=== PATIENT | male | born 1960 | race Caucasian/White ===

== ENCOUNTER 2021-03-01 13:11 | Inpatient (IN) | payer OTHER ==
[2021-03-01 13:43] VITALS: BMI 24.2
[2021-03-01] MEDS ORDERED: MAG HYDROX/AL HYDROX/SIMETH 30 ML UNIT-DOSE CUP PO PRN (14:31)
[2021-03-01] MEDS ORDERED: METHADONE HCL 10 MG TABLET (FOR DETOX USE ONLY) PO ONE (14:31)
[2021-03-01] MEDS ORDERED: MENTHOL/PHENOL 1 EACH UD MM PRN (14:31)
[2021-03-01] MEDS ORDERED: IBUPROFEN 400 MG TABLET (FP) PO PRN (14:31)
[2021-03-01] MEDS ORDERED: LORazepam 1 MG TABLET PO PRN (14:31)
[2021-03-01] MEDS ORDERED: NICOTINE POLACRILEX 2 MG GUM BUC PRN (14:31)
[2021-03-01] MEDS ORDERED: MAGNESIUM HYDROX 2400MG/30ML ORAL SUSPENSION 30 ML CUP PO PRN (14:31)
[2021-03-01] MEDS ORDERED: ACETAMINOPHEN 325 MG TABLET (FP) PO PRN ×2 (14:31)
[2021-03-01] MEDS ORDERED: MAGNESIUM CITRATE 300 ML BOTTLE PO PRN (14:31)
[2021-03-01] MEDS ORDERED: METHOCARBAMOL 500 MG TABLET PO PRN (14:31)
[2021-03-01] MEDS ORDERED: cloNIDine HCL 0.1 MG TABLET PO PRN (14:31)
[2021-03-01] MEDS ORDERED: BISMUTH SUBSALICYLATE 262 MG/15 ML BTL PO PRN (14:31)
[2021-03-01] MEDS ORDERED: ONDANSETRON *ODT* 4 MG TABLET SL PRN (14:31)
[2021-03-01] MEDS: hydrOXYzine PAMOATE 25 MG CAPSULE (FP) PO SCH ×2 (17:22→22:17)
[2021-03-01] MEDS: PRENATAL VITAMINS W/ FOLIC ACID TABLET (FP) PO SCH (17:22)
[2021-03-01] MEDS: LORazepam 2 MG TABLET PO SCH ×2 (17:22→22:17)
[2021-03-01] MEDS: MELATONIN 5 MG TABLETS PO SCH (22:17)
[2021-03-01] MEDS: THIAMINE HCL 100 MG TABLET (FP) PO SCH (22:17)
[2021-03-02] MEDS: LORazepam 2 MG TABLET PO SCH ×4 (05:23→22:29)
[2021-03-02] MEDS: hydrOXYzine PAMOATE 25 MG CAPSULE (FP) PO SCH ×5 (05:23→22:30)
[2021-03-02] MEDS ORDERED: METHADONE HCL 10 MG TABLET PO ONE (09:50)
[2021-03-02] MEDS ORDERED: METHADONE HCL 40 MG DISPERSABLE TABLET PO SCH (10:00)
[2021-03-02] MEDS ORDERED: METHADONE (DETOX) 20 MG, METHADONE (DETOX) 5 MG PO ONE (10:00)
[2021-03-02] MEDS ORDERED: METHADONE 80 MG, METHADONE 10 MG PO ONE (10:02)
[2021-03-02] MEDS ORDERED: METHADONE HCL 40 MG DISPERSABLE TABLET ONE (10:25)
[2021-03-02] MEDS ORDERED: METHADONE HCL 10 MG TABLET ONE (10:25)
[2021-03-02] MEDS: PRENATAL VITAMINS W/ FOLIC ACID TABLET (FP) PO SCH (10:26)
[2021-03-02 11:26] LABS: HEMATOCRIT 40.5 % (35.4-49); HEMOGLOBIN 13.6 GM/dL (11.7-16.9); MCH 35.5 pg (25.7-33.7); MCHC 33.5 g/dl (32.0-35.9); MEAN CELL VOLUME 106.2 fl (80-96); MEAN PLT VOLUME 10.2 fl (7.5-11.1); PLATELET COUNT 243 10^3/uL (134-434); RBC 3.82 M/mm3 (4.00-5.60); RDW 14.2 % (11.9-15.9); WHITE BLOOD COUNT 3.3 K/mm3 (4.0-10.0)
[2021-03-02 11:56] LABS: ALBUMIN 3.7 g/dl (3.4-5.0); BLOOD UREA NITROGEN 7.8 mg/dL (7-18); CALCIUM 8.9 mg/dL (8.5-10.1)
[2021-03-02 11:58] LABS: CREATININE 0.7 mg/dL (0.55-1.3)
[2021-03-02 12:00] LABS: BILIRUBIN,TOTAL 0.3 mg/dL (0.2-1)
[2021-03-02] MEDS: TIOTROPIUM BROMIDE 2.5 MCG (SPIRIVA) RESPIMAT INHALER IH SCH (17:25)
[2021-03-02] MEDS: FLUTICASONE PROP 0.05% 16 GM NASAL SPRAY NS SCH ×2 (17:25→22:31)
[2021-03-02] MEDS: BUDESONIDE/FORMETEROL FUMARATE 160/4.5 mcg INHALER IH SCH ×2 (17:25→22:31)
[2021-03-02] MEDS: DOCUSATE SODIUM 100 MG CAPSULE (FP) PO SCH ×2 (17:26→22:30)
[2021-03-02] MEDS: amLODIPine BESYLATE 10 MG TABLET (FP) PO SCH (17:26)
[2021-03-02] MEDS: MELATONIN 5 MG TABLETS PO SCH (22:30)
[2021-03-02] MEDS: THIAMINE HCL 100 MG TABLET (FP) PO SCH (22:30)
[2021-03-02] MEDS: SENNOSIDES 8.6MG TABLET (FP) PO SCH (22:30)
[2021-03-03] MEDS ORDERED: METHADONE HCL 10 MG TABLET ONE (04:19)
[2021-03-03] MEDS ORDERED: METHADONE HCL 40 MG DISPERSABLE TABLET ONE (04:20)
[2021-03-03] MEDS: METHADONE 80 MG, METHADONE 10 MG PO SCH (05:14)
[2021-03-03] MEDS: hydrOXYzine PAMOATE 25 MG CAPSULE (FP) PO SCH ×5 (05:14→22:40)
[2021-03-03] MEDS: LORazepam 1 MG TABLET PO SCH ×4 (05:14→22:40)
[2021-03-03] MEDS: DOCUSATE SODIUM 100 MG CAPSULE (FP) PO SCH ×3 (05:14→22:40)
[2021-03-03] MEDS ORDERED: METHADONE HCL 40 MG DISPERSABLE TABLET PO SCH (06:00)
[2021-03-03] MEDS ORDERED: METHADONE HCL 10 MG TABLET (FOR DETOX USE ONLY) PO ONE (10:00)
[2021-03-03] MEDS: amLODIPine BESYLATE 10 MG TABLET (FP) PO SCH (10:59)
[2021-03-03] MEDS: FLUTICASONE PROP 0.05% 16 GM NASAL SPRAY NS SCH ×2 (10:59→22:42)
[2021-03-03] MEDS: BUDESONIDE/FORMETEROL FUMARATE 160/4.5 mcg INHALER IH SCH ×2 (10:59→22:42)
[2021-03-03] MEDS: PRENATAL VITAMINS W/ FOLIC ACID TABLET (FP) PO SCH (10:59)
[2021-03-03] MEDS: FINASTERIDE 5 MG TABLET (FP) PO SCH (11:00)
[2021-03-03] MEDS: TIOTROPIUM BROMIDE 2.5 MCG (SPIRIVA) RESPIMAT INHALER IH SCH (11:00)
[2021-03-03] MEDS: SENNOSIDES 8.6MG TABLET (FP) PO SCH (22:40)
[2021-03-03] MEDS: traZODone HCL 50 MG TABLET (FP) PO SCH (22:40)
[2021-03-03] MEDS: MELATONIN 5 MG TABLETS PO SCH (22:41)
[2021-03-03] MEDS: THIAMINE HCL 100 MG TABLET (FP) PO SCH (22:41)
[2021-03-04] MEDS ORDERED: LORazepam 0.5 MG TABLET PO PRN
[2021-03-04] MEDS ORDERED: METHADONE HCL 10 MG TABLET ONE (04:43)
[2021-03-04] MEDS ORDERED: METHADONE HCL 40 MG DISPERSABLE TABLET ONE (04:43)
[2021-03-04] MEDS: DOCUSATE SODIUM 100 MG CAPSULE (FP) PO SCH ×3 (05:50→22:31)
[2021-03-04] MEDS: METHADONE 80 MG, METHADONE 10 MG PO SCH (05:51)
[2021-03-04] MEDS: LORazepam 0.5 MG TABLET PO SCH ×4 (05:53→22:31)
[2021-03-04] MEDS: hydrOXYzine PAMOATE 25 MG CAPSULE (FP) PO SCH (05:54)
[2021-03-04] MEDS ORDERED: hydrOXYzine PAMOATE 25 MG CAPSULE (FP) PO PRN (09:58)
[2021-03-04] MEDS ORDERED: METHADONE (DETOX) 10 MG, METHADONE (DETOX) 5 MG PO ONE (10:00)
[2021-03-04] MEDS: FLUTICASONE PROP 0.05% 16 GM NASAL SPRAY NS SCH ×2 (10:15→22:33)
[2021-03-04] MEDS: BUDESONIDE/FORMETEROL FUMARATE 160/4.5 mcg INHALER IH SCH ×2 (10:15→22:33)
[2021-03-04] MEDS: amLODIPine BESYLATE 10 MG TABLET (FP) PO SCH (10:16)
[2021-03-04] MEDS: TIOTROPIUM BROMIDE 2.5 MCG (SPIRIVA) RESPIMAT INHALER IH SCH (10:16)
[2021-03-04] MEDS: PRENATAL VITAMINS W/ FOLIC ACID TABLET (FP) PO SCH (10:16)
[2021-03-04] MEDS: FINASTERIDE 5 MG TABLET (FP) PO SCH (10:16)
[2021-03-04] MEDS: traZODone HCL 50 MG TABLET (FP) PO SCH (22:31)
[2021-03-04] MEDS: SENNOSIDES 8.6MG TABLET (FP) PO SCH (22:31)
[2021-03-04] MEDS: THIAMINE HCL 100 MG TABLET (FP) PO SCH (22:31)
[2021-03-04] MEDS: MELATONIN 5 MG TABLETS PO SCH (22:33)
[2021-03-05] MEDS ORDERED: METHADONE HCL 10 MG TABLET ONE (04:05)
[2021-03-05] MEDS ORDERED: METHADONE HCL 40 MG DISPERSABLE TABLET ONE (04:05)
[2021-03-05] MEDS ORDERED: LORazepam 0.5 MG TABLET PO ONE (05:00)
[2021-03-05] MEDS: DOCUSATE SODIUM 100 MG CAPSULE (FP) PO SCH (05:46)
[2021-03-05] MEDS: METHADONE 80 MG, METHADONE 10 MG PO SCH (05:46)
[2021-03-05] MEDS ORDERED: METHADONE HCL 10 MG TABLET (FOR DETOX USE ONLY) PO ONE (10:00)
[2021-03-05 10:21] VITALS: BP 105/69; PULSE 71; TEMP 97.3
[2021-03-06] MEDS ORDERED: METHADONE HCL 5 MG TABLET (FOR DETOX USE ONLY) PO ONE (06:00)
== END 2021-03-05 09:50 | disposition home or self-care (01) | DRG 773 ==
LOC: YASAS 13:11 → Y3N 14:59
PROVIDERS: ADMIT Allergy & Immunology; ATTEND Allergy & Immunology
PROC: HZ2ZZZZ Detoxification Services for Substance Abuse Treatment (ICD-10-PCS; principal; 2021-03-01)
DX: F11.23 Opioid dependence with withdrawal (principal); F10.230 Alcohol dependence with withdrawal, uncomplicated; F17.210 Nicotine dependence, cigarettes, uncomplicated; I10 Essential (primary) hypertension; J44.9 Chronic obstructive pulmonary disease, unspecified; Z96.652 Presence of left artificial knee joint
CPT/HCPCS: 36415; 80053; 85027; 86780; 93005; 93010; C9803; U0003; U0005

== ENCOUNTER 2023-04-19 18:24 | Inpatient (IN) | payer OTHER ==
[2023-04-19 20:22] VITALS: BMI 27.4
[2023-04-19] MEDS ORDERED: chlordiazePOXIDE HCL 25 MG CAPSULE PO ONE (21:18)
[2023-04-19] MEDS ORDERED: chlordiazePOXIDE HCL 25 MG CAPSULE PO PRN (21:18)
[2023-04-19] MEDS ORDERED: chlordiazePOXIDE HCL 25 MG CAPSULE ONE (21:34)
[2023-04-19] MEDS ORDERED: MAGNESIUM HYDROX 2400MG/30ML ORAL SUSPENSION 30 ML CUP PO PRN (21:36)
[2023-04-19] MEDS ORDERED: IBUPROFEN 600 MG TABLET (FP) PO PRN (21:36)
[2023-04-19] MEDS ORDERED: IBUPROFEN 400 MG TABLET (FP) PO PRN (21:36)
[2023-04-19] MEDS ORDERED: ONDANSETRON *ODT* 4 MG TABLET SL PRN (21:36)
[2023-04-19] MEDS ORDERED: NALOXONE HCL (KLOXXADO) 8 MG SPRAY NS PRN (21:36)
[2023-04-19] MEDS ORDERED: NALOXONE HCL 0.4 MG/ML VIAL IM PRN (21:36)
[2023-04-19] MEDS ORDERED: LOPERAMIDE HCL 2 MG CAPSULE PO PRN (21:36)
[2023-04-19] MEDS ORDERED: MAG HYDROX/AL HYDROX/SIMETH 30 ML UNIT-DOSE CUP PO PRN (21:36)
[2023-04-19] MEDS ORDERED: guaiFENesin 600 MG TABLET.ER (FP) PO PRN (21:36)
[2023-04-19] MEDS ORDERED: POLYETHYLENE GLYCOL (HEALTHYLAX) 3350 17 GM PACKET PO PRN (21:36)
[2023-04-19] MEDS ORDERED: BISMUTH SUBSALICYLATE 524 MG/30 ML PO PRN (21:36)
[2023-04-19] MEDS ORDERED: BENZOCAINE/MENTHOL (CHLORASEPTIC ) LOZENGE MM PRN (21:36)
[2023-04-19] MEDS ORDERED: ACETAMINOPHEN 325 MG TABLET (FP) PO PRN (21:36)
[2023-04-19] MEDS ORDERED: P-EPHED 60MG/TRIPROLIDI 2.5MG TABLET PO PRN (21:36)
[2023-04-19] MEDS ORDERED: BENZONATATE 200 MG CAPSULE PO PRN (21:36)
[2023-04-19] MEDS ORDERED: amLODIPine BESYLATE 5 MG TABLET (FP) ONE (22:41)
[2023-04-19] MEDS: amLODIPine BESYLATE 10 MG TABLET (FP) PO SCH (22:43)
[2023-04-19] MEDS: THIAMINE HCL 100 MG TABLET (FP) PO SCH (22:44)
[2023-04-19] MEDS ORDERED: chlordiazePOXIDE HCL 25 MG CAPSULE PO SCH (23:00)
[2023-04-19] MEDS: MELATONIN 5 MG TABLETS PO SCH (23:02)
[2023-04-19] MEDS: BUDESONIDE/FORMETEROL FUMARATE 160/4.5 mcg INHALER IH SCH (23:02)
[2023-04-19] MEDS: DOCUSATE SODIUM 100 MG CAPSULE (FP) PO SCH (23:02)
[2023-04-19] MEDS ORDERED: ALBUTEROL SO4 2.5/IPRATROPIUM 0.5 INH SOL 3 ML VIAL.NEB. NEB ONE (23:30)
[2023-04-20] MEDS: chlordiazePOXIDE HCL 25 MG CAPSULE PO SCH ×4 (05:37→22:30)
[2023-04-20] MEDS: DOCUSATE SODIUM 100 MG CAPSULE (FP) PO SCH ×3 (05:38→22:30)
[2023-04-20] MEDS ORDERED: methaDONE HCL 10 MG TABLET PO SCH (09:30)
[2023-04-20] MEDS ORDERED: methaDONE 80 MG, methaDONE 20 MG PO ONE (10:00)
[2023-04-20] MEDS: FOLIC ACID 1 MG TABLET (FP) PO SCH (10:10)
[2023-04-20] MEDS: PRENATAL VITAMINS W/ FOLIC ACID TABLET (FP) PO SCH (10:10)
[2023-04-20] MEDS: amLODIPine BESYLATE 10 MG TABLET (FP) PO SCH (10:10)
[2023-04-20] MEDS: BUDESONIDE/FORMETEROL FUMARATE 160/4.5 mcg INHALER IH SCH ×2 (10:11→22:30)
[2023-04-20] MEDS: TIOTROPIUM BROMIDE 2.5 MCG (SPIRIVA) RESPIMAT INHALER IH SCH (10:12)
[2023-04-20 11:04] LABS: POTASSIUM 3.2 mmol/L (3.5-5.1)
[2023-04-20 11:05] LABS: HEMATOCRIT 31.1 % (35.4-49); HEMOGLOBIN 10.4 GM/dL (11.7-16.9); MCH 35.9 pg (25.7-33.7); MCHC 33.5 g/dl (32.0-35.9); MEAN CELL VOLUME 107.2 fl (80-96); MEAN PLT VOLUME 8.9 fl (7.5-11.1); PLATELET COUNT 163 10^3/uL (134-434); RDW 14.4 % (11.9-15.9); WHITE BLOOD COUNT 2.8 K/mm3 (4.0-10.0)
[2023-04-20 11:06] LABS: CALCIUM 8.7 mg/dL (8.5-10.1)
[2023-04-20 11:07] LABS: ALBUMIN 3.4 g/dl (3.4-5.0); BLOOD UREA NITROGEN 6.3 mg/dL (7-18)
[2023-04-20 11:10] LABS: CREATININE 0.5 mg/dL (0.55-1.3)
[2023-04-20 12:01] LABS: BILIRUBIN,TOTAL 0.5 mg/dL (0.2-1)
[2023-04-20] MEDS: FAMOTIDINE 20 MG TABLET PO SCH (15:55)
[2023-04-20] MEDS: POTASSIUM CHLORIDE ORAL LIQUID 20 MEQ/15 ML PO SCH (17:17)
[2023-04-20] MEDS: THIAMINE HCL 100 MG TABLET (FP) PO SCH (22:30)
[2023-04-20] MEDS: MELATONIN 5 MG TABLETS PO SCH (22:30)
[2023-04-21] MEDS: methaDONE 80 MG, methaDONE 20 MG PO SCH (05:57)
[2023-04-21] MEDS: DOCUSATE SODIUM 100 MG CAPSULE (FP) PO SCH ×3 (05:57→22:13)
[2023-04-21] MEDS: chlordiazePOXIDE HCL 25 MG CAPSULE PO SCH ×4 (05:58→22:14)
[2023-04-21] MEDS: POTASSIUM CHLORIDE ORAL LIQUID 20 MEQ/15 ML PO SCH (06:05)
[2023-04-21] MEDS: AMOX TR/POT CLAV 875MG/125MG TABLETS (FP) PO SCH ×2 (07:17→17:21)
[2023-04-21] MEDS: PRENATAL VITAMINS W/ FOLIC ACID TABLET (FP) PO SCH (10:22)
[2023-04-21] MEDS: FOLIC ACID 1 MG TABLET (FP) PO SCH (10:22)
[2023-04-21] MEDS: TIOTROPIUM BROMIDE 2.5 MCG (SPIRIVA) RESPIMAT INHALER IH SCH (10:22)
[2023-04-21] MEDS: BUDESONIDE/FORMETEROL FUMARATE 160/4.5 mcg INHALER IH SCH ×2 (10:22→22:14)
[2023-04-21] MEDS: DOXYCYCLINE HYCLATE 100 MG CAPSULE PO SCH ×2 (10:23→17:32)
[2023-04-21] MEDS: amLODIPine BESYLATE 10 MG TABLET (FP) PO SCH (10:23)
[2023-04-21] MEDS: FAMOTIDINE 20 MG TABLET PO SCH (10:23)
[2023-04-21] MEDS ORDERED: ALBUTEROL SO4 HFA INHALER IH PRN (14:24)
[2023-04-21] MEDS: THIAMINE HCL 100 MG TABLET (FP) PO SCH (22:13)
[2023-04-21] MEDS: MELATONIN 5 MG TABLETS PO SCH (22:13)
[2023-04-22] MEDS ORDERED: chlordiazePOXIDE HCL 10 MG CAPSULE PO PRN
[2023-04-22] MEDS: methaDONE 80 MG, methaDONE 20 MG PO SCH (05:41)
[2023-04-22] MEDS: chlordiazePOXIDE HCL 10 MG CAPSULE PO SCH ×4 (05:42→22:12)
[2023-04-22] MEDS: DOCUSATE SODIUM 100 MG CAPSULE (FP) PO SCH ×3 (05:42→22:11)
[2023-04-22] MEDS: AMOX TR/POT CLAV 875MG/125MG TABLETS (FP) PO SCH ×2 (07:22→17:13)
[2023-04-22] MEDS ORDERED: TRIMETHOBENZAMIDE HCL 200MG/2ML INJ IM ONE (10:14)
[2023-04-22] MEDS: BUDESONIDE/FORMETEROL FUMARATE 160/4.5 mcg INHALER IH SCH ×2 (10:27→22:11)
[2023-04-22] MEDS: TIOTROPIUM BROMIDE 2.5 MCG (SPIRIVA) RESPIMAT INHALER IH SCH (10:27)
[2023-04-22] MEDS: PRENATAL VITAMINS W/ FOLIC ACID TABLET (FP) PO SCH (10:27)
[2023-04-22] MEDS: DOXYCYCLINE HYCLATE 100 MG CAPSULE PO SCH ×2 (10:28→17:12)
[2023-04-22] MEDS: FAMOTIDINE 20 MG TABLET PO SCH (10:29)
[2023-04-22] MEDS: amLODIPine BESYLATE 10 MG TABLET (FP) PO SCH (10:30)
[2023-04-22] MEDS: FOLIC ACID 1 MG TABLET (FP) PO SCH (10:30)
[2023-04-22] MEDS ORDERED: ONDANSETRON 4 MG/2 ML VIAL IM ONE (11:00)
[2023-04-22] MEDS: MELATONIN 5 MG TABLETS PO SCH (22:11)
[2023-04-22] MEDS: THIAMINE HCL 100 MG TABLET (FP) PO SCH (22:11)
[2023-04-23] MEDS: chlordiazePOXIDE HCL 10 MG CAPSULE PO SCH ×2 (05:42→17:52)
[2023-04-23] MEDS: DOCUSATE SODIUM 100 MG CAPSULE (FP) PO SCH ×3 (05:42→22:09)
[2023-04-23] MEDS: methaDONE 80 MG, methaDONE 20 MG PO SCH (05:43)
[2023-04-23] MEDS: AMOX TR/POT CLAV 875MG/125MG TABLETS (FP) PO SCH ×2 (07:14→17:53)
[2023-04-23] MEDS ORDERED: ONDANSETRON *ODT* 4 MG TABLET SL PRN (09:54)
[2023-04-23] MEDS: PRENATAL VITAMINS W/ FOLIC ACID TABLET (FP) PO SCH (10:21)
[2023-04-23] MEDS: BUDESONIDE/FORMETEROL FUMARATE 160/4.5 mcg INHALER IH SCH ×2 (10:22→22:10)
[2023-04-23] MEDS: TIOTROPIUM BROMIDE 2.5 MCG (SPIRIVA) RESPIMAT INHALER IH SCH (10:22)
[2023-04-23] MEDS: FOLIC ACID 1 MG TABLET (FP) PO SCH (11:57)
[2023-04-23] MEDS: amLODIPine BESYLATE 10 MG TABLET (FP) PO SCH (11:58)
[2023-04-23] MEDS: FAMOTIDINE 20 MG TABLET PO SCH (11:58)
[2023-04-23] MEDS: DOXYCYCLINE HYCLATE 100 MG CAPSULE PO SCH ×2 (12:14→17:52)
[2023-04-23] MEDS ORDERED: POTASSIUM CHLORIDE ORAL LIQUID 20 MEQ/15 ML PO ONE (15:30)
[2023-04-23] MEDS: THIAMINE HCL 100 MG TABLET (FP) PO SCH (22:09)
[2023-04-23] MEDS: POTASSIUM CHLORIDE ORAL LIQUID 20 MEQ/15 ML PO SCH (22:09)
[2023-04-23] MEDS: MELATONIN 5 MG TABLETS PO SCH (22:09)
[2023-04-24] MEDS ORDERED: chlordiazePOXIDE HCL 10 MG CAPSULE PO ONE (05:00)
[2023-04-24] MEDS: DOCUSATE SODIUM 100 MG CAPSULE (FP) PO SCH (05:29)
[2023-04-24] MEDS: methaDONE 80 MG, methaDONE 20 MG PO SCH (05:29)
[2023-04-24] MEDS: AMOX TR/POT CLAV 875MG/125MG TABLETS (FP) PO SCH (07:22)
[2023-04-24] MEDS: FOLIC ACID 1 MG TABLET (FP) PO SCH (09:24)
[2023-04-24] MEDS: amLODIPine BESYLATE 10 MG TABLET (FP) PO SCH (09:24)
[2023-04-24] MEDS: FAMOTIDINE 20 MG TABLET PO SCH (09:24)
[2023-04-24] MEDS: TIOTROPIUM BROMIDE 2.5 MCG (SPIRIVA) RESPIMAT INHALER IH SCH (09:24)
[2023-04-24] MEDS: BUDESONIDE/FORMETEROL FUMARATE 160/4.5 mcg INHALER IH SCH (09:24)
[2023-04-24] MEDS: DOXYCYCLINE HYCLATE 100 MG CAPSULE PO SCH (09:24)
[2023-04-24] MEDS: POTASSIUM CHLORIDE ORAL LIQUID 20 MEQ/15 ML PO SCH (09:25)
[2023-04-24] MEDS: PRENATAL VITAMINS W/ FOLIC ACID TABLET (FP) PO SCH (09:27)
[2023-04-24 10:59] VITALS: BP 105/77; PULSE 82; RESP 17; TEMP 98.3
== END 2023-04-24 12:36 | disposition other institution (70) | DRG 773 ==
LOC: YASAS 18:24 → Y3N 22:03
PROVIDERS: ADMIT Allergy & Immunology; ATTEND Surgery
PROC: HZ2ZZZZ Detoxification Services for Substance Abuse Treatment (ICD-10-PCS; principal; 2023-04-19)
DX: F10.230 Alcohol dependence with withdrawal, uncomplicated (principal); F11.20 Opioid dependence, uncomplicated; F17.210 Nicotine dependence, cigarettes, uncomplicated; E87.6 Hypokalemia; J18.9 Pneumonia, unspecified organism; I10 Essential (primary) hypertension; J45.909 Unspecified asthma, uncomplicated
CPT/HCPCS: 36415; 71045-TC-FY; 80053; 84132; 85027; 86780; 87635; 94640; Q0162

== ENCOUNTER 2023-04-20 18:29 | Emergency (ER) | payer OTHER ==
[2023-04-20 18:59] VITALS: RESP 18; TEMP 98.1; BMI 27.4
[2023-04-20] MEDS ORDERED: AMOX TR/POT CLAV 875MG/125MG TABLETS (FP) PO ONE (20:05)
[2023-04-20] MEDS ORDERED: DOXYCYCLINE HYCLATE 100 MG CAPSULE PO ONE ×2 (20:06→20:16)
[2023-04-20 20:07] VITALS: BP 144/88; PULSE 58
[2023-04-20] MEDS ORDERED: AMOX TR/POT CLAV 875MG/125MG TABLETS (FP) ONE (20:16)
[2023-04-20] MEDS ORDERED: LIDOCAINE 5% TOPICAL PATCH TP ONE (20:28)
[2023-04-20] MEDS ORDERED: chlordiazePOXIDE HCL 10 MG CAPSULE PO ONE (20:37)
[2023-04-20] MEDS ORDERED: chlordiazePOXIDE HCL 25 MG CAPSULE PO ONE (20:46)
[2023-04-20] MEDS ORDERED: chlordiazePOXIDE 5 MG CAPSULE ONE (20:46)
[2023-04-20] MEDS ORDERED: chlordiazePOXIDE HCL 25 MG CAPSULE ONE (20:52)
== END 2023-04-20 21:25 | disposition home or self-care (01) ==
LOC: JER 18:29
DX: R06.02 Shortness of breath (principal); R05.9 Cough, unspecified; R50.9 Fever, unspecified; R07.89 Other chest pain; J18.9 Pneumonia, unspecified organism; F10.10 Alcohol abuse, uncomplicated; F11.20 Opioid dependence, uncomplicated; R10.31 Right lower quadrant pain; R10.32 Left lower quadrant pain; Z02.79 Encounter for issue of other medical certificate
CPT/HCPCS: 93005; 93010; 99285-25

== ENCOUNTER 2023-04-24 12:52 | Inpatient (IN) | payer OTHER ==
[2023-04-24] MEDS ORDERED: POLYETHYLENE GLYCOL (HEALTHYLAX) 3350 17 GM PACKET PO PRN (13:41)
[2023-04-24] MEDS ORDERED: BENZOCAINE/MENTHOL (CHLORASEPTIC ) LOZENGE MM PRN (13:41)
[2023-04-24] MEDS ORDERED: LOPERAMIDE HCL 2 MG CAPSULE PO PRN (13:41)
[2023-04-24] MEDS ORDERED: NICOTINE POLACRILEX 4 MG GUM BUC PRN (13:41)
[2023-04-24] MEDS ORDERED: NALOXONE HCL 0.4 MG/ML VIAL IVPUSH PRN (13:41)
[2023-04-24] MEDS ORDERED: IBUPROFEN 600 MG TABLET (FP) PO PRN (13:41)
[2023-04-24] MEDS ORDERED: MAG HYDROX/AL HYDROX/SIMETH 30 ML UNIT-DOSE CUP PO PRN (13:41)
[2023-04-24] MEDS ORDERED: ACETAMINOPHEN 325 MG TABLET (FP) PO PRN (13:41)
[2023-04-24] MEDS ORDERED: guaiFENesin 600 MG TABLET.ER (FP) PO PRN (13:41)
[2023-04-24] MEDS ORDERED: NALOXONE HCL (KLOXXADO) 8 MG SPRAY NS PRN (13:41)
[2023-04-24] MEDS ORDERED: METHOCARBAMOL 500 MG TABLET PO PRN (13:41)
[2023-04-24] MEDS ORDERED: AMMONIUM LACTATE 12% LOTION 225 GM BOTTLE TP PRN (13:41)
[2023-04-24] MEDS ORDERED: MAGNESIUM HYDROX 2400MG/30ML ORAL SUSPENSION 30 ML CUP PO PRN (13:41)
[2023-04-24] MEDS ORDERED: IBUPROFEN 400 MG TABLET (FP) PO PRN (13:41)
[2023-04-24] MEDS ORDERED: BENZONATATE 200 MG CAPSULE PO PRN (13:41)
[2023-04-24] MEDS ORDERED: NICOTINE 14 MG/24 HOURS TOPICAL PATCH TD PRN (13:41)
[2023-04-24] MEDS: ALBUTEROL SO4 HFA INHALER IH SCH ×3 (14:32→21:23)
[2023-04-24] MEDS: DOXYCYCLINE HYCLATE 100 MG TABLET PO SCH (17:32)
[2023-04-24] MEDS: BUDESONIDE/FORMETEROL FUMARATE 160/4.5 mcg INHALER IH SCH (21:23)
[2023-04-24] MEDS: hydrOXYzine PAMOATE 25 MG CAPSULE (FP) PO PRN (21:24)
[2023-04-24] MEDS: AMOX TR/POT CLAV 875MG/125MG TABLETS (FP) PO SCH (21:24)
[2023-04-24] MEDS: MELATONIN 5 MG TABLETS PO SCH (21:24)
[2023-04-24] MEDS: THIAMINE HCL 100 MG TABLET (FP) PO SCH (21:24)
[2023-04-25] MEDS: ALBUTEROL SO4 HFA INHALER IH SCH ×2 (02:43→06:19)
[2023-04-25] MEDS: methaDONE 80 MG, methaDONE 20 MG PO SCH (06:19)
[2023-04-25] MEDS: DOXYCYCLINE HYCLATE 100 MG TABLET PO SCH ×2 (06:19→17:27)
[2023-04-25] MEDS: FAMOTIDINE 20 MG TABLET PO SCH (09:00)
[2023-04-25] MEDS ORDERED: ALBUTEROL SO4 HFA INHALER IH PRN (09:21)
[2023-04-25] MEDS: AMOX TR/POT CLAV 875MG/125MG TABLETS (FP) PO SCH ×2 (09:35→21:23)
[2023-04-25] MEDS: amLODIPine BESYLATE 10 MG TABLET (FP) PO SCH (09:35)
[2023-04-25] MEDS: PRENATAL VITAMINS W/ FOLIC ACID TABLET (FP) PO SCH (09:35)
[2023-04-25] MEDS: BUDESONIDE/FORMETEROL FUMARATE 160/4.5 mcg INHALER IH SCH ×2 (09:36→21:23)
[2023-04-25] MEDS: TIOTROPIUM BROMIDE 2.5 MCG (SPIRIVA) RESPIMAT INHALER IH SCH (09:38)
[2023-04-25] MEDS ORDERED: methaDONE HCL 40 MG DISPERSABLE TABLET PO SCH (10:00)
[2023-04-25] MEDS: THIAMINE HCL 100 MG TABLET (FP) PO SCH (21:23)
[2023-04-25] MEDS: MELATONIN 5 MG TABLETS PO SCH (21:23)
[2023-04-26] MEDS: methaDONE 80 MG, methaDONE 20 MG PO SCH (07:07)
[2023-04-26] MEDS: amLODIPine BESYLATE 10 MG TABLET (FP) PO SCH (09:53)
[2023-04-26] MEDS: BUDESONIDE/FORMETEROL FUMARATE 160/4.5 mcg INHALER IH SCH ×2 (09:53→21:48)
[2023-04-26] MEDS: FAMOTIDINE 20 MG TABLET PO SCH (09:53)
[2023-04-26] MEDS: PRENATAL VITAMINS W/ FOLIC ACID TABLET (FP) PO SCH (09:53)
[2023-04-26] MEDS: TIOTROPIUM BROMIDE 2.5 MCG (SPIRIVA) RESPIMAT INHALER IH SCH (09:54)
[2023-04-26] MEDS: MELATONIN 5 MG TABLETS PO SCH (21:48)
[2023-04-26] MEDS: THIAMINE HCL 100 MG TABLET (FP) PO SCH (21:48)
[2023-04-26] MEDS: hydrOXYzine PAMOATE 25 MG CAPSULE (FP) PO PRN (21:50)
[2023-04-27] MEDS: methaDONE 80 MG, methaDONE 20 MG PO SCH (06:15)
[2023-04-27] MEDS: FAMOTIDINE 20 MG TABLET PO SCH (09:28)
[2023-04-27] MEDS: BUDESONIDE/FORMETEROL FUMARATE 160/4.5 mcg INHALER IH SCH ×2 (09:28→21:34)
[2023-04-27] MEDS: TIOTROPIUM BROMIDE 2.5 MCG (SPIRIVA) RESPIMAT INHALER IH SCH (09:29)
[2023-04-27] MEDS: PRENATAL VITAMINS W/ FOLIC ACID TABLET (FP) PO SCH (09:29)
[2023-04-27] MEDS: amLODIPine BESYLATE 10 MG TABLET (FP) PO SCH (09:29)
[2023-04-27] MEDS: MELATONIN 5 MG TABLETS PO SCH (21:33)
[2023-04-27] MEDS: THIAMINE HCL 100 MG TABLET (FP) PO SCH (21:33)
[2023-04-28] MEDS: methaDONE 80 MG, methaDONE 20 MG PO SCH (06:05)
[2023-04-28] MEDS: COLLOIDAL OATMEAL 1 BAR EACH TP PRN (07:41)
[2023-04-28] MEDS: FAMOTIDINE 20 MG TABLET PO SCH (09:36)
[2023-04-28] MEDS: amLODIPine BESYLATE 10 MG TABLET (FP) PO SCH (09:36)
[2023-04-28] MEDS: BUDESONIDE/FORMETEROL FUMARATE 160/4.5 mcg INHALER IH SCH ×2 (09:36→21:15)
[2023-04-28] MEDS: PRENATAL VITAMINS W/ FOLIC ACID TABLET (FP) PO SCH (09:36)
[2023-04-28] MEDS: TIOTROPIUM BROMIDE 2.5 MCG (SPIRIVA) RESPIMAT INHALER IH SCH (09:36)
[2023-04-28] MEDS: THIAMINE HCL 100 MG TABLET (FP) PO SCH (21:15)
[2023-04-28] MEDS: MELATONIN 5 MG TABLETS PO SCH (21:15)
[2023-04-29] MEDS: methaDONE 80 MG, methaDONE 20 MG PO SCH (06:21)
[2023-04-29] MEDS: FAMOTIDINE 20 MG TABLET PO SCH (09:34)
[2023-04-29] MEDS: amLODIPine BESYLATE 10 MG TABLET (FP) PO SCH (09:34)
[2023-04-29] MEDS: PRENATAL VITAMINS W/ FOLIC ACID TABLET (FP) PO SCH (09:34)
[2023-04-29] MEDS: BUDESONIDE/FORMETEROL FUMARATE 160/4.5 mcg INHALER IH SCH ×2 (09:35→21:39)
[2023-04-29] MEDS: TIOTROPIUM BROMIDE 2.5 MCG (SPIRIVA) RESPIMAT INHALER IH SCH (09:35)
[2023-04-29] MEDS: hydrOXYzine PAMOATE 25 MG CAPSULE (FP) PO PRN (21:37)
[2023-04-29] MEDS: THIAMINE HCL 100 MG TABLET (FP) PO SCH (21:37)
[2023-04-29] MEDS: MELATONIN 5 MG TABLETS PO SCH (21:37)
[2023-04-30] MEDS: methaDONE 80 MG, methaDONE 20 MG PO SCH (05:47)
[2023-04-30] MEDS: TIOTROPIUM BROMIDE 2.5 MCG (SPIRIVA) RESPIMAT INHALER IH SCH (09:48)
[2023-04-30] MEDS: BUDESONIDE/FORMETEROL FUMARATE 160/4.5 mcg INHALER IH SCH ×2 (09:48→21:31)
[2023-04-30] MEDS: amLODIPine BESYLATE 10 MG TABLET (FP) PO SCH (09:49)
[2023-04-30] MEDS: PRENATAL VITAMINS W/ FOLIC ACID TABLET (FP) PO SCH (09:49)
[2023-04-30] MEDS: FAMOTIDINE 20 MG TABLET PO SCH (09:49)
[2023-04-30] MEDS ORDERED: PATIENT'S OWN MEDICATION (NON-FORMULARY) (Famotidine 40 MG Tablet) PO SCH (11:00)
[2023-04-30] MEDS ORDERED: METHYL SALICYLATE/MENTHOL OINT 30 GM TUBE TP PRN (11:11)
[2023-04-30] MEDS ORDERED: ALBUTEROL SO4 2.5/IPRATROPIUM 0.5 INH SOL 3 ML VIAL.NEB. NEB ONE (12:30)
[2023-04-30] MEDS: LACTULOSE 20 GM/30 ML UDC (FOR ORAL USE ONLY) PO SCH ×2 (13:17→21:33)
[2023-04-30] MEDS: LIDOCAINE 5% TOPICAL PATCH TP SCH (13:17)
[2023-04-30] MEDS: MELATONIN 5 MG TABLETS PO SCH (21:32)
[2023-04-30] MEDS: hydrOXYzine PAMOATE 25 MG CAPSULE (FP) PO PRN (21:32)
[2023-04-30] MEDS: THIAMINE HCL 100 MG TABLET (FP) PO SCH (21:32)
[2023-04-30] MEDS: LIDOCAINE PATCH REMOVAL MC SCH (21:33)
[2023-05-01] MEDS: methaDONE 80 MG, methaDONE 20 MG PO SCH (06:40)
[2023-05-01] MEDS: LACTULOSE 20 GM/30 ML UDC (FOR ORAL USE ONLY) PO SCH ×3 (06:40→21:28)
[2023-05-01] MEDS: LIDOCAINE 5% TOPICAL PATCH TP SCH (10:02)
[2023-05-01] MEDS: FAMOTIDINE 20 MG TABLET PO SCH (10:02)
[2023-05-01] MEDS: BUDESONIDE/FORMETEROL FUMARATE 160/4.5 mcg INHALER IH SCH ×2 (10:02→21:29)
[2023-05-01] MEDS: amLODIPine BESYLATE 10 MG TABLET (FP) PO SCH (10:02)
[2023-05-01] MEDS: TIOTROPIUM BROMIDE 2.5 MCG (SPIRIVA) RESPIMAT INHALER IH SCH (10:02)
[2023-05-01] MEDS: PRENATAL VITAMINS W/ FOLIC ACID TABLET (FP) PO SCH (10:02)
[2023-05-01 12:03] LABS: MAGNESIUM 2.2 mg/dL (1.8-2.4)
[2023-05-01 12:06] LABS: INR 0.91 (0.83-1.09); PROTHROMBIN TIME (PATIENT) 10.6 SEC (9.7-13.0)
[2023-05-01] MEDS: MELATONIN 5 MG TABLETS PO SCH (21:28)
[2023-05-01] MEDS: THIAMINE HCL 100 MG TABLET (FP) PO SCH (21:29)
[2023-05-01] MEDS: LIDOCAINE PATCH REMOVAL MC SCH (21:40)
[2023-05-02] MEDS: LACTULOSE 20 GM/30 ML UDC (FOR ORAL USE ONLY) PO SCH ×3 (06:18→21:39)
[2023-05-02] MEDS: methaDONE 80 MG, methaDONE 20 MG PO SCH (06:18)
[2023-05-02] MEDS: BUDESONIDE/FORMETEROL FUMARATE 160/4.5 mcg INHALER IH SCH ×2 (09:46→21:41)
[2023-05-02] MEDS: PRENATAL VITAMINS W/ FOLIC ACID TABLET (FP) PO SCH (09:46)
[2023-05-02] MEDS: FAMOTIDINE 20 MG TABLET PO SCH (09:47)
[2023-05-02] MEDS: TIOTROPIUM BROMIDE 2.5 MCG (SPIRIVA) RESPIMAT INHALER IH SCH (09:47)
[2023-05-02] MEDS: amLODIPine BESYLATE 10 MG TABLET (FP) PO SCH (09:48)
[2023-05-02] MEDS: LIDOCAINE 5% TOPICAL PATCH TP SCH (09:48)
[2023-05-02] MEDS: THIAMINE HCL 100 MG TABLET (FP) PO SCH (21:39)
[2023-05-02] MEDS: MELATONIN 5 MG TABLETS PO SCH (21:41)
[2023-05-02] MEDS: LIDOCAINE PATCH REMOVAL MC SCH (21:41)
[2023-05-03] MEDS: LACTULOSE 20 GM/30 ML UDC (FOR ORAL USE ONLY) PO SCH ×3 (06:12→21:45)
[2023-05-03] MEDS: methaDONE 80 MG, methaDONE 20 MG PO SCH (06:13)
[2023-05-03] MEDS: LIDOCAINE 5% TOPICAL PATCH TP SCH (09:34)
[2023-05-03] MEDS: amLODIPine BESYLATE 10 MG TABLET (FP) PO SCH (09:35)
[2023-05-03] MEDS: PRENATAL VITAMINS W/ FOLIC ACID TABLET (FP) PO SCH (09:35)
[2023-05-03] MEDS: TIOTROPIUM BROMIDE 2.5 MCG (SPIRIVA) RESPIMAT INHALER IH SCH (09:36)
[2023-05-03] MEDS: FAMOTIDINE 20 MG TABLET PO SCH (09:36)
[2023-05-03] MEDS: BUDESONIDE/FORMETEROL FUMARATE 160/4.5 mcg INHALER IH SCH ×2 (09:36→21:46)
[2023-05-03] MEDS: LIDOCAINE PATCH REMOVAL MC SCH (21:45)
[2023-05-03] MEDS: THIAMINE HCL 100 MG TABLET (FP) PO SCH (21:46)
[2023-05-03] MEDS: SUVOREXANT 10 MG TABLET PO PRN (21:46)
[2023-05-04] MEDS: methaDONE 80 MG, methaDONE 20 MG PO SCH (06:00)
[2023-05-04] MEDS: LACTULOSE 20 GM/30 ML UDC (FOR ORAL USE ONLY) PO SCH ×3 (06:00→21:33)
[2023-05-04] MEDS: PRENATAL VITAMINS W/ FOLIC ACID TABLET (FP) PO SCH (10:17)
[2023-05-04] MEDS: LIDOCAINE 5% TOPICAL PATCH TP SCH (10:17)
[2023-05-04] MEDS: BUDESONIDE/FORMETEROL FUMARATE 160/4.5 mcg INHALER IH SCH ×2 (10:17→21:33)
[2023-05-04] MEDS: FAMOTIDINE 20 MG TABLET PO SCH (10:18)
[2023-05-04] MEDS: amLODIPine BESYLATE 10 MG TABLET (FP) PO SCH (10:18)
[2023-05-04] MEDS: TIOTROPIUM BROMIDE 2.5 MCG (SPIRIVA) RESPIMAT INHALER IH SCH (10:18)
[2023-05-04] MEDS: LIDOCAINE PATCH REMOVAL MC SCH (21:34)
[2023-05-04] MEDS: SUVOREXANT 10 MG TABLET PO PRN (21:34)
[2023-05-04] MEDS: THIAMINE HCL 100 MG TABLET (FP) PO SCH (21:34)
[2023-05-05] MEDS: LACTULOSE 20 GM/30 ML UDC (FOR ORAL USE ONLY) PO SCH ×3 (06:07→21:49)
[2023-05-05] MEDS: methaDONE 80 MG, methaDONE 20 MG PO SCH (06:08)
[2023-05-05] MEDS: LIDOCAINE 5% TOPICAL PATCH TP SCH (10:07)
[2023-05-05] MEDS: BUDESONIDE/FORMETEROL FUMARATE 160/4.5 mcg INHALER IH SCH ×2 (10:08→21:49)
[2023-05-05] MEDS: amLODIPine BESYLATE 10 MG TABLET (FP) PO SCH (10:08)
[2023-05-05] MEDS: PRENATAL VITAMINS W/ FOLIC ACID TABLET (FP) PO SCH (10:08)
[2023-05-05] MEDS: FAMOTIDINE 20 MG TABLET PO SCH (10:08)
[2023-05-05] MEDS: TIOTROPIUM BROMIDE 2.5 MCG (SPIRIVA) RESPIMAT INHALER IH SCH (10:09)
[2023-05-05] MEDS: THIAMINE HCL 100 MG TABLET (FP) PO SCH (21:48)
[2023-05-05] MEDS: LIDOCAINE PATCH REMOVAL MC SCH (21:53)
[2023-05-05] MEDS: SUVOREXANT 10 MG TABLET PO PRN (22:14)
[2023-05-06] MEDS: methaDONE 80 MG, methaDONE 20 MG PO SCH (06:12)
[2023-05-06] MEDS: LACTULOSE 20 GM/30 ML UDC (FOR ORAL USE ONLY) PO SCH ×3 (06:12→21:23)
[2023-05-06] MEDS: amLODIPine BESYLATE 10 MG TABLET (FP) PO SCH (09:35)
[2023-05-06] MEDS: PRENATAL VITAMINS W/ FOLIC ACID TABLET (FP) PO SCH (09:35)
[2023-05-06] MEDS: FAMOTIDINE 20 MG TABLET PO SCH (09:35)
[2023-05-06] MEDS: BUDESONIDE/FORMETEROL FUMARATE 160/4.5 mcg INHALER IH SCH ×2 (09:35→21:23)
[2023-05-06] MEDS: LIDOCAINE 5% TOPICAL PATCH TP SCH (09:36)
[2023-05-06] MEDS: TIOTROPIUM BROMIDE 2.5 MCG (SPIRIVA) RESPIMAT INHALER IH SCH (09:36)
[2023-05-06] MEDS: THIAMINE HCL 100 MG TABLET (FP) PO SCH (21:23)
[2023-05-06] MEDS: LIDOCAINE PATCH REMOVAL MC SCH (21:24)
[2023-05-06] MEDS ORDERED: SUVOREXANT 10 MG TABLET PO PRN (22:00)
[2023-05-07] MEDS: methaDONE 80 MG, methaDONE 20 MG PO SCH (06:00)
[2023-05-07] MEDS: LACTULOSE 20 GM/30 ML UDC (FOR ORAL USE ONLY) PO SCH ×3 (06:00→21:42)
[2023-05-07] MEDS: LIDOCAINE 5% TOPICAL PATCH TP SCH (09:43)
[2023-05-07] MEDS: PRENATAL VITAMINS W/ FOLIC ACID TABLET (FP) PO SCH (09:44)
[2023-05-07] MEDS: BUDESONIDE/FORMETEROL FUMARATE 160/4.5 mcg INHALER IH SCH ×2 (09:44→21:43)
[2023-05-07] MEDS: amLODIPine BESYLATE 10 MG TABLET (FP) PO SCH (09:44)
[2023-05-07] MEDS: FAMOTIDINE 20 MG TABLET PO SCH (09:44)
[2023-05-07] MEDS: TIOTROPIUM BROMIDE 2.5 MCG (SPIRIVA) RESPIMAT INHALER IH SCH (14:03)
[2023-05-07] MEDS: THIAMINE HCL 100 MG TABLET (FP) PO SCH (21:43)
[2023-05-07] MEDS: LIDOCAINE PATCH REMOVAL MC SCH (21:45)
[2023-05-08] MEDS: LACTULOSE 20 GM/30 ML UDC (FOR ORAL USE ONLY) PO SCH ×3 (05:57→21:42)
[2023-05-08] MEDS: methaDONE 80 MG, methaDONE 20 MG PO SCH (05:57)
[2023-05-08] MEDS: LIDOCAINE 5% TOPICAL PATCH TP SCH (09:34)
[2023-05-08] MEDS: FAMOTIDINE 20 MG TABLET PO SCH (09:36)
[2023-05-08] MEDS: amLODIPine BESYLATE 10 MG TABLET (FP) PO SCH (09:36)
[2023-05-08] MEDS: TIOTROPIUM BROMIDE 2.5 MCG (SPIRIVA) RESPIMAT INHALER IH SCH (09:36)
[2023-05-08] MEDS: BUDESONIDE/FORMETEROL FUMARATE 160/4.5 mcg INHALER IH SCH ×2 (09:36→21:43)
[2023-05-08] MEDS: MULTIVITAMINS (DAILY MVI) TABLET (FP) PO SCH (09:37)
[2023-05-08] MEDS: LIDOCAINE PATCH REMOVAL MC SCH (21:42)
[2023-05-08] MEDS: THIAMINE HCL 100 MG TABLET (FP) PO SCH (21:42)
[2023-05-08] MEDS: traZODone HCL 50 MG TABLET (FP) PO PRN (21:44)
[2023-05-08] MEDS: hydrOXYzine PAMOATE 25 MG CAPSULE (FP) PO PRN (21:44)
[2023-05-09] MEDS: LACTULOSE 20 GM/30 ML UDC (FOR ORAL USE ONLY) PO SCH ×3 (06:00→21:29)
[2023-05-09] MEDS: methaDONE 80 MG, methaDONE 20 MG PO SCH (06:00)
[2023-05-09] MEDS: LIDOCAINE 5% TOPICAL PATCH TP SCH (10:12)
[2023-05-09] MEDS: amLODIPine BESYLATE 10 MG TABLET (FP) PO SCH (10:12)
[2023-05-09] MEDS: MULTIVITAMINS (DAILY MVI) TABLET (FP) PO SCH (10:13)
[2023-05-09] MEDS: TIOTROPIUM BROMIDE 2.5 MCG (SPIRIVA) RESPIMAT INHALER IH SCH (10:13)
[2023-05-09] MEDS: BUDESONIDE/FORMETEROL FUMARATE 160/4.5 mcg INHALER IH SCH ×2 (10:13→21:29)
[2023-05-09] MEDS: FAMOTIDINE 20 MG TABLET PO SCH (10:13)
[2023-05-09] MEDS: traZODone HCL 50 MG TABLET (FP) PO PRN (21:29)
[2023-05-09] MEDS: THIAMINE HCL 100 MG TABLET (FP) PO SCH (21:29)
[2023-05-09] MEDS: hydrOXYzine PAMOATE 25 MG CAPSULE (FP) PO PRN (21:29)
[2023-05-09] MEDS: LIDOCAINE PATCH REMOVAL MC SCH (21:52)
[2023-05-10] MEDS: LACTULOSE 20 GM/30 ML UDC (FOR ORAL USE ONLY) PO SCH ×3 (05:58→21:18)
[2023-05-10] MEDS: methaDONE 80 MG, methaDONE 20 MG PO SCH (05:58)
[2023-05-10] MEDS: TIOTROPIUM BROMIDE 2.5 MCG (SPIRIVA) RESPIMAT INHALER IH SCH (09:45)
[2023-05-10] MEDS: BUDESONIDE/FORMETEROL FUMARATE 160/4.5 mcg INHALER IH SCH ×2 (09:45→21:18)
[2023-05-10] MEDS: LIDOCAINE 5% TOPICAL PATCH TP SCH (09:45)
[2023-05-10] MEDS: FAMOTIDINE 20 MG TABLET PO SCH (09:46)
[2023-05-10] MEDS: MULTIVITAMINS (DAILY MVI) TABLET (FP) PO SCH (09:46)
[2023-05-10] MEDS: amLODIPine BESYLATE 10 MG TABLET (FP) PO SCH (09:46)
[2023-05-10] MEDS: COLLOIDAL OATMEAL 1 BAR EACH TP PRN (10:42)
[2023-05-10] MEDS: THIAMINE HCL 100 MG TABLET (FP) PO SCH (21:18)
[2023-05-10] MEDS: hydrOXYzine PAMOATE 25 MG CAPSULE (FP) PO PRN (21:18)
[2023-05-10] MEDS: traZODone HCL 50 MG TABLET (FP) PO PRN (21:18)
[2023-05-10] MEDS: LIDOCAINE PATCH REMOVAL MC SCH (21:19)
[2023-05-11] MEDS: LACTULOSE 20 GM/30 ML UDC (FOR ORAL USE ONLY) PO SCH ×3 (06:10→21:30)
[2023-05-11] MEDS: methaDONE 80 MG, methaDONE 20 MG PO SCH (06:11)
[2023-05-11] MEDS: LIDOCAINE 5% TOPICAL PATCH TP SCH (10:01)
[2023-05-11] MEDS: BUDESONIDE/FORMETEROL FUMARATE 160/4.5 mcg INHALER IH SCH ×2 (10:01→21:30)
[2023-05-11] MEDS: FAMOTIDINE 20 MG TABLET PO SCH (10:01)
[2023-05-11] MEDS: TIOTROPIUM BROMIDE 2.5 MCG (SPIRIVA) RESPIMAT INHALER IH SCH (10:01)
[2023-05-11] MEDS: MULTIVITAMINS (DAILY MVI) TABLET (FP) PO SCH (10:01)
[2023-05-11] MEDS: amLODIPine BESYLATE 10 MG TABLET (FP) PO SCH (10:01)
[2023-05-11] MEDS: THIAMINE HCL 100 MG TABLET (FP) PO SCH (21:29)
[2023-05-11] MEDS: LIDOCAINE PATCH REMOVAL MC SCH (21:30)
[2023-05-11] MEDS: traZODone HCL 50 MG TABLET (FP) PO PRN (21:33)
[2023-05-12] MEDS: hydrOXYzine PAMOATE 25 MG CAPSULE (FP) PO PRN (01:42)
[2023-05-12] MEDS: LACTULOSE 20 GM/30 ML UDC (FOR ORAL USE ONLY) PO SCH ×3 (06:03→21:33)
[2023-05-12] MEDS: methaDONE 80 MG, methaDONE 20 MG PO SCH (06:03)
[2023-05-12] MEDS: amLODIPine BESYLATE 10 MG TABLET (FP) PO SCH (10:35)
[2023-05-12] MEDS: BUDESONIDE/FORMETEROL FUMARATE 160/4.5 mcg INHALER IH SCH ×2 (10:36→21:33)
[2023-05-12] MEDS: FAMOTIDINE 20 MG TABLET PO SCH (10:36)
[2023-05-12] MEDS: TIOTROPIUM BROMIDE 2.5 MCG (SPIRIVA) RESPIMAT INHALER IH SCH (10:36)
[2023-05-12] MEDS: LIDOCAINE 5% TOPICAL PATCH TP SCH (10:36)
[2023-05-12] MEDS: MULTIVITAMINS (DAILY MVI) TABLET (FP) PO SCH (10:38)
[2023-05-12] MEDS: traZODone HCL 50 MG TABLET (FP) PO PRN (21:33)
[2023-05-12] MEDS: LIDOCAINE PATCH REMOVAL MC SCH (21:33)
[2023-05-12] MEDS: THIAMINE HCL 100 MG TABLET (FP) PO SCH (21:34)
[2023-05-13] MEDS: LACTULOSE 20 GM/30 ML UDC (FOR ORAL USE ONLY) PO SCH ×3 (06:03→21:35)
[2023-05-13] MEDS: methaDONE 80 MG, methaDONE 20 MG PO SCH (06:03)
[2023-05-13 07:27] VITALS: RESP 18
[2023-05-13] MEDS: FAMOTIDINE 20 MG TABLET PO SCH (09:39)
[2023-05-13] MEDS: BUDESONIDE/FORMETEROL FUMARATE 160/4.5 mcg INHALER IH SCH ×2 (09:39→21:35)
[2023-05-13] MEDS: TIOTROPIUM BROMIDE 2.5 MCG (SPIRIVA) RESPIMAT INHALER IH SCH (09:39)
[2023-05-13] MEDS: MULTIVITAMINS (DAILY MVI) TABLET (FP) PO SCH (09:39)
[2023-05-13] MEDS: amLODIPine BESYLATE 10 MG TABLET (FP) PO SCH (09:39)
[2023-05-13] MEDS: LIDOCAINE 5% TOPICAL PATCH TP SCH (09:39)
[2023-05-13] MEDS: THIAMINE HCL 100 MG TABLET (FP) PO SCH (21:34)
[2023-05-13] MEDS: LIDOCAINE PATCH REMOVAL MC SCH (21:35)
[2023-05-13] MEDS: traZODone HCL 50 MG TABLET (FP) PO PRN (21:35)
[2023-05-14] MEDS: LACTULOSE 20 GM/30 ML UDC (FOR ORAL USE ONLY) PO SCH ×3 (05:51→21:29)
[2023-05-14] MEDS: methaDONE 80 MG, methaDONE 20 MG PO SCH (05:53)
[2023-05-14] MEDS: MULTIVITAMINS (DAILY MVI) TABLET (FP) PO SCH (09:42)
[2023-05-14] MEDS: LIDOCAINE 5% TOPICAL PATCH TP SCH (09:42)
[2023-05-14] MEDS: amLODIPine BESYLATE 10 MG TABLET (FP) PO SCH (09:43)
[2023-05-14] MEDS: BUDESONIDE/FORMETEROL FUMARATE 160/4.5 mcg INHALER IH SCH ×2 (09:43→21:28)
[2023-05-14] MEDS: FAMOTIDINE 20 MG TABLET PO SCH (09:43)
[2023-05-14] MEDS: TIOTROPIUM BROMIDE 2.5 MCG (SPIRIVA) RESPIMAT INHALER IH SCH (09:43)
[2023-05-14] MEDS: CLOTRIMAZOLE 1% CREAM TP SCH (21:26)
[2023-05-14] MEDS: THIAMINE HCL 100 MG TABLET (FP) PO SCH (21:27)
[2023-05-14] MEDS: traZODone HCL 100 MG TABLET (FP) PO PRN (21:27)
[2023-05-14] MEDS: LIDOCAINE PATCH REMOVAL MC SCH (21:28)
[2023-05-15] MEDS: methaDONE 80 MG, methaDONE 20 MG PO SCH (06:49)
[2023-05-15] MEDS: LACTULOSE 20 GM/30 ML UDC (FOR ORAL USE ONLY) PO SCH ×3 (06:50→21:33)
[2023-05-15] MEDS: TIOTROPIUM BROMIDE 2.5 MCG (SPIRIVA) RESPIMAT INHALER IH SCH (10:01)
[2023-05-15] MEDS: BUDESONIDE/FORMETEROL FUMARATE 160/4.5 mcg INHALER IH SCH ×2 (10:01→21:33)
[2023-05-15] MEDS: LIDOCAINE 5% TOPICAL PATCH TP SCH (10:02)
[2023-05-15] MEDS: MULTIVITAMINS (DAILY MVI) TABLET (FP) PO SCH (10:02)
[2023-05-15] MEDS: CLOTRIMAZOLE 1% CREAM TP SCH ×2 (10:02→21:33)
[2023-05-15] MEDS: amLODIPine BESYLATE 10 MG TABLET (FP) PO SCH (10:02)
[2023-05-15] MEDS: FAMOTIDINE 20 MG TABLET PO SCH (10:03)
[2023-05-15] MEDS: THIAMINE HCL 100 MG TABLET (FP) PO SCH (21:33)
[2023-05-15] MEDS: traZODone HCL 100 MG TABLET (FP) PO PRN (21:35)
[2023-05-15] MEDS: LIDOCAINE PATCH REMOVAL MC SCH (21:52)
[2023-05-16] MEDS: LACTULOSE 20 GM/30 ML UDC (FOR ORAL USE ONLY) PO SCH (06:09)
[2023-05-16] MEDS: methaDONE 80 MG, methaDONE 20 MG PO SCH (06:09)
[2023-05-16 07:27] VITALS: BP 135/77; PULSE 71; TEMP 97.5
[2023-05-16] MEDS: CLOTRIMAZOLE 1% CREAM TP SCH (09:42)
[2023-05-16] MEDS: LIDOCAINE 5% TOPICAL PATCH TP SCH (09:42)
[2023-05-16] MEDS: TIOTROPIUM BROMIDE 2.5 MCG (SPIRIVA) RESPIMAT INHALER IH SCH (09:43)
[2023-05-16] MEDS: FAMOTIDINE 20 MG TABLET PO SCH (09:43)
[2023-05-16] MEDS: BUDESONIDE/FORMETEROL FUMARATE 160/4.5 mcg INHALER IH SCH (09:43)
[2023-05-16] MEDS: amLODIPine BESYLATE 10 MG TABLET (FP) PO SCH (09:43)
[2023-05-16] MEDS: MULTIVITAMINS (DAILY MVI) TABLET (FP) PO SCH (09:44)
== END 2023-05-16 10:36 | disposition home or self-care (01) | DRG 772 ==
LOC: YASAS 12:52 → Y5N 12:55
PROVIDERS: ADMIT Allergy & Immunology; ATTEND Psychiatry & Neurology Pain Medicine
PROC: HZ42ZZZ Group Counseling for Substance Abuse Treatment, Cognitive-Behavioral (ICD-10-PCS; principal; 2023-04-24)
DX: F11.20 Opioid dependence, uncomplicated (principal); F10.20 Alcohol dependence, uncomplicated; F17.210 Nicotine dependence, cigarettes, uncomplicated; E72.20 Disorder of urea cycle metabolism, unspecified; G25.0 Essential tremor; G47.00 Insomnia, unspecified; I10 Essential (primary) hypertension; J45.909 Unspecified asthma, uncomplicated; R79.89 Other specified abnormal findings of blood chemistry; Z96.652 Presence of left artificial knee joint; Z91.81 History of falling; Z99.89 Dependence on other enabling machines and devices
CPT/HCPCS: 36415; 82140; 82306; 82607; 82746; 83735; 85610; 86803

== ENCOUNTER 2023-07-03 18:05 | Inpatient (IN) | payer OTHER ==
[2023-07-03 18:48] VITALS: BMI 25.7
[2023-07-03] MEDS ORDERED: IBUPROFEN 600 MG TABLET (FP) PO PRN (19:49)
[2023-07-03] MEDS ORDERED: ACETAMINOPHEN 325 MG TABLET (FP) PO PRN (19:49)
[2023-07-03] MEDS ORDERED: BENZOCAINE/MENTHOL (CHLORASEPTIC ) LOZENGE MM PRN (19:49)
[2023-07-03] MEDS ORDERED: BENZONATATE 200 MG CAPSULE PO PRN (19:49)
[2023-07-03] MEDS ORDERED: DICYCLOMINE HCL 10 MG CAPSULE PO PRN (19:49)
[2023-07-03] MEDS ORDERED: IBUPROFEN 400 MG TABLET (FP) PO PRN (19:49)
[2023-07-03] MEDS ORDERED: MAGNESIUM HYDROX 2400MG/30ML ORAL SUSPENSION 30 ML CUP PO PRN (19:49)
[2023-07-03] MEDS ORDERED: P-EPHED 60MG/TRIPROLIDI 2.5MG TABLET PO PRN (19:49)
[2023-07-03] MEDS ORDERED: LOPERAMIDE HCL 2 MG CAPSULE PO PRN (19:49)
[2023-07-03] MEDS ORDERED: guaiFENesin 600 MG TABLET.ER (FP) PO PRN (19:49)
[2023-07-03] MEDS ORDERED: POLYETHYLENE GLYCOL (HEALTHYLAX) 3350 17 GM PACKET PO PRN (19:49)
[2023-07-03] MEDS ORDERED: BISMUTH SUBSALICYLATE 524 MG/30 ML PO PRN (19:49)
[2023-07-03] MEDS ORDERED: MAG HYDROX/AL HYDROX/SIMETH 30 ML UNIT-DOSE CUP PO PRN (19:49)
[2023-07-03] MEDS ORDERED: ONDANSETRON *ODT* 4 MG TABLET SL PRN (19:49)
[2023-07-03] MEDS ORDERED: NICOTINE POLACRILEX 2 MG GUM BUC PRN (19:49)
[2023-07-03] MEDS ORDERED: diazePAM 5 MG TABLET ONE (20:11)
[2023-07-03] MEDS ORDERED: amLODIPine BESYLATE 5 MG TABLET (FP) ONE (20:12)
[2023-07-03] MEDS: amLODIPine BESYLATE 10 MG TABLET (FP) PO SCH (20:14)
[2023-07-03] MEDS: diazePAM 5 MG TABLET PO PRN (20:15)
[2023-07-03] MEDS: MELATONIN 5 MG TABLETS PO SCH (22:23)
[2023-07-03] MEDS: BUDESONIDE/FORMETEROL FUMARATE 160/4.5 mcg INHALER IH SCH (22:23)
[2023-07-03] MEDS: THIAMINE HCL 100 MG TABLET (FP) PO SCH (22:23)
[2023-07-03] MEDS: diazePAM 5 MG TABLET PO SCH (22:24)
[2023-07-04] MEDS: diazePAM 5 MG TABLET PO SCH ×4 (05:22→22:27)
[2023-07-04] MEDS: PRENATAL VITAMINS W/ FOLIC ACID TABLET (FP) PO SCH (10:11)
[2023-07-04] MEDS: amLODIPine BESYLATE 10 MG TABLET (FP) PO SCH (10:11)
[2023-07-04] MEDS: methaDONE HCL 10 MG TABLET PO SCH (10:11)
[2023-07-04] MEDS: BUDESONIDE/FORMETEROL FUMARATE 160/4.5 mcg INHALER IH SCH ×2 (10:12→22:25)
[2023-07-04 11:41] LABS: HEMATOCRIT 33.9 % (35.4-49); HEMOGLOBIN 11.7 GM/dL (11.7-16.9); MCH 36.6 pg (25.7-33.7); MCHC 34.5 g/dl (32.0-35.9); MEAN CELL VOLUME 106.2 fl (80-96); PLATELET COUNT 146 10^3/uL (134-434); RDW 14.9 % (11.9-15.9); WHITE BLOOD COUNT 3.1 K/mm3 (4.0-10.0)
[2023-07-04 12:25] LABS: CHLORIDE 102 mmol/L (98-107); POTASSIUM 3.5 mmol/L (3.5-5.1); SODIUM 139 mmol/L (136-145)
[2023-07-04 12:29] LABS: CALCIUM 9.5 mg/dL (8.5-10.1)
[2023-07-04 12:30] LABS: ALBUMIN 3.3 g/dl (3.4-5.0); ANION GAP 7 mmol/L (4-13); BLOOD UREA NITROGEN 9.9 mg/dL (7-18); CO2 30 mmol/L (21-32); GLUCOSE,RANDOM 110 mg/dL (74-106)
[2023-07-04 12:33] LABS: CREATININE 0.7 mg/dL (0.55-1.3); SGOT/AST 54 U/L (15-37); SGPT/ALT 63 U/L (13-61)
[2023-07-04 12:34] LABS: BILIRUBIN,TOTAL 0.5 mg/dL (0.2-1)
[2023-07-04 12:35] LABS: ALK PHOS 88 U/L (45-117)
[2023-07-04] MEDS: MELATONIN 5 MG TABLETS PO SCH (22:26)
[2023-07-04] MEDS: THIAMINE HCL 100 MG TABLET (FP) PO SCH (22:26)
[2023-07-05] MEDS: methaDONE HCL 10 MG TABLET PO SCH (05:30)
[2023-07-05] MEDS: diazePAM 5 MG TABLET PO SCH ×3 (05:30→22:16)
[2023-07-05] MEDS: BUDESONIDE/FORMETEROL FUMARATE 160/4.5 mcg INHALER IH SCH ×2 (10:19→22:16)
[2023-07-05] MEDS: PRENATAL VITAMINS W/ FOLIC ACID TABLET (FP) PO SCH (10:19)
[2023-07-05] MEDS: amLODIPine BESYLATE 10 MG TABLET (FP) PO SCH (10:19)
[2023-07-05] MEDS: diazePAM 5 MG TABLET PO PRN (10:20)
[2023-07-05] MEDS: THIAMINE HCL 100 MG TABLET (FP) PO SCH (22:16)
[2023-07-05] MEDS: MELATONIN 5 MG TABLETS PO SCH (22:16)
[2023-07-06] MEDS: diazePAM 5 MG TABLET PO SCH ×2 (05:21→17:11)
[2023-07-06] MEDS: methaDONE HCL 10 MG TABLET PO SCH (05:21)
[2023-07-06] MEDS: diazePAM 5 MG TABLET PO PRN (10:24)
[2023-07-06] MEDS: BUDESONIDE/FORMETEROL FUMARATE 160/4.5 mcg INHALER IH SCH ×2 (10:24→22:14)
[2023-07-06] MEDS: amLODIPine BESYLATE 10 MG TABLET (FP) PO SCH (10:25)
[2023-07-06] MEDS: PRENATAL VITAMINS W/ FOLIC ACID TABLET (FP) PO SCH (10:27)
[2023-07-06] MEDS: TIOTROPIUM BROMIDE 2.5 MCG (SPIRIVA) RESPIMAT INHALER IH SCH (11:06)
[2023-07-06] MEDS: FAMOTIDINE 20 MG TABLET PO SCH (11:07)
[2023-07-06] MEDS: ALBUTEROL SO4 HFA INHALER IH PRN (16:13)
[2023-07-06 21:03] VITALS: RESP 16
[2023-07-06] MEDS: THIAMINE HCL 100 MG TABLET (FP) PO SCH (22:14)
[2023-07-06] MEDS: MELATONIN 5 MG TABLETS PO SCH (22:14)
[2023-07-07] MEDS: methaDONE HCL 10 MG TABLET PO SCH (05:14)
[2023-07-07] MEDS ORDERED: diazePAM 5 MG TABLET PO ONE (06:00)
[2023-07-07 09:08] VITALS: BP 146/93; PULSE 76; TEMP 98
[2023-07-07] MEDS: FAMOTIDINE 20 MG TABLET PO SCH (10:15)
[2023-07-07] MEDS: PRENATAL VITAMINS W/ FOLIC ACID TABLET (FP) PO SCH (10:15)
[2023-07-07] MEDS: amLODIPine BESYLATE 10 MG TABLET (FP) PO SCH (10:15)
[2023-07-07] MEDS: ALBUTEROL SO4 HFA INHALER IH PRN (10:16)
[2023-07-07] MEDS: TIOTROPIUM BROMIDE 2.5 MCG (SPIRIVA) RESPIMAT INHALER IH SCH (10:17)
[2023-07-07] MEDS: BUDESONIDE/FORMETEROL FUMARATE 160/4.5 mcg INHALER IH SCH (10:17)
== END 2023-07-07 14:05 | disposition home or self-care (01) | DRG 773 ==
LOC: YASAS 18:05 → Y6N 20:34
PROVIDERS: ADMIT Allergy & Immunology; ATTEND Surgery
PROC: HZ2ZZZZ Detoxification Services for Substance Abuse Treatment (ICD-10-PCS; principal; 2023-07-03)
DX: F10.230 Alcohol dependence with withdrawal, uncomplicated (principal); F11.20 Opioid dependence, uncomplicated; F17.210 Nicotine dependence, cigarettes, uncomplicated; I10 Essential (primary) hypertension; J45.909 Unspecified asthma, uncomplicated; R26.89 Other abnormalities of gait and mobility; R29.6 Repeated falls
CPT/HCPCS: 36415; 71045-TC-FY; 80053; 80307; 83036; 85027; 86780; 87635

== ENCOUNTER 2023-07-17 15:49 | Inpatient (IN) | payer OTHER ==
[2023-07-17 17:34] VITALS: BMI 26.4
[2023-07-17] MEDS ORDERED: POLYETHYLENE GLYCOL (HEALTHYLAX) 3350 17 GM PACKET PO PRN (18:37)
[2023-07-17] MEDS ORDERED: ACETAMINOPHEN 325 MG TABLET (FP) PO PRN (18:37)
[2023-07-17] MEDS ORDERED: LOPERAMIDE HCL 2 MG CAPSULE PO PRN (18:37)
[2023-07-17] MEDS ORDERED: BISMUTH SUBSALICYLATE 524 MG/30 ML PO PRN (18:37)
[2023-07-17] MEDS ORDERED: IBUPROFEN 400 MG TABLET (FP) PO PRN (18:37)
[2023-07-17] MEDS ORDERED: NALOXONE HCL 0.4 MG/ML VIAL IM PRN (18:37)
[2023-07-17] MEDS ORDERED: IBUPROFEN 600 MG TABLET (FP) PO PRN (18:37)
[2023-07-17] MEDS ORDERED: DICYCLOMINE HCL 10 MG CAPSULE PO PRN (18:37)
[2023-07-17] MEDS ORDERED: guaiFENesin 600 MG TABLET.ER (FP) PO PRN (18:37)
[2023-07-17] MEDS ORDERED: MAG HYDROX/AL HYDROX/SIMETH 30 ML UNIT-DOSE CUP PO PRN (18:37)
[2023-07-17] MEDS ORDERED: BACLOFEN 10 MG TABLET (FP) PO PRN (18:37)
[2023-07-17] MEDS ORDERED: BENZOCAINE/MENTHOL (CHLORASEPTIC ) LOZENGE MM PRN (18:37)
[2023-07-17] MEDS ORDERED: BENZONATATE 200 MG CAPSULE PO PRN (18:37)
[2023-07-17] MEDS ORDERED: NICOTINE POLACRILEX 2 MG GUM BUC PRN (18:37)
[2023-07-17] MEDS ORDERED: ONDANSETRON *ODT* 4 MG TABLET SL PRN (18:37)
[2023-07-17] MEDS ORDERED: MAGNESIUM HYDROX 2400MG/30ML ORAL SUSPENSION 30 ML CUP PO PRN (18:37)
[2023-07-17] MEDS ORDERED: NALOXONE HCL (KLOXXADO) 8 MG SPRAY NS PRN (18:37)
[2023-07-17] MEDS: ALBUTEROL SO4 HFA INHALER IH PRN (19:44)
[2023-07-17] MEDS: THIAMINE HCL 100 MG TABLET (FP) PO SCH (22:40)
[2023-07-17] MEDS: MELATONIN 5 MG TABLETS PO SCH (22:40)
[2023-07-17] MEDS: hydrOXYzine PAMOATE 25 MG CAPSULE (FP) PO PRN (22:40)
[2023-07-17] MEDS: BUDESONIDE/FORMETEROL FUMARATE 160/4.5 mcg INHALER IH SCH (22:44)
[2023-07-18 08:29] LABS: CHLORIDE 105 mmol/L (98-107); POTASSIUM 3.7 mmol/L (3.5-5.1); SODIUM 139 mmol/L (136-145)
[2023-07-18 08:35] LABS: ALBUMIN 3.1 g/dl (3.4-5.0); ANION GAP 2 mmol/L (4-13); CO2 32 mmol/L (21-32); GLUCOSE,RANDOM 95 mg/dL (74-106)
[2023-07-18 08:36] LABS: HEMOGLOBIN 11.3 GM/dL (11.7-16.9); MCH 35.1 pg (25.7-33.7); MCHC 32.4 g/dl (32.0-35.9); MEAN CELL VOLUME 108.5 fl (80-96); MEAN PLT VOLUME 9.3 fl (7.5-11.1); PLATELET COUNT 231 10^3/uL (134-434); RBC 3.23 M/mm3 (4.00-5.60); RDW 14.5 % (11.9-15.9); WHITE BLOOD COUNT 3.2 K/mm3 (4.0-10.0)
[2023-07-18 08:39] LABS: CREATININE 0.7 mg/dL (0.55-1.3); SGOT/AST 39 U/L (15-37); SGPT/ALT 50 U/L (13-61)
[2023-07-18 08:40] LABS: BILIRUBIN,TOTAL 0.6 mg/dL (0.2-1); TOT PROT 5.8 g/dl (6.4-8.2)
[2023-07-18 08:41] LABS: ALK PHOS 79 U/L (45-117)
[2023-07-18] MEDS ORDERED: diazePAM 5 MG TABLET PO PRN (09:14)
[2023-07-18] MEDS: FAMOTIDINE 20 MG TABLET PO SCH (10:28)
[2023-07-18] MEDS: ALBUTEROL SO4 HFA INHALER IH PRN (10:28)
[2023-07-18] MEDS: BUDESONIDE/FORMETEROL FUMARATE 160/4.5 mcg INHALER IH SCH ×2 (10:28→22:09)
[2023-07-18] MEDS: PRENATAL VITAMINS W/ FOLIC ACID TABLET (FP) PO SCH (10:28)
[2023-07-18] MEDS: amLODIPine BESYLATE 10 MG TABLET (FP) PO SCH (10:28)
[2023-07-18] MEDS: diazePAM 5 MG TABLET PO SCH ×3 (10:29→22:08)
[2023-07-18] MEDS ORDERED: methaDONE HCL 10 MG TABLET PO SCH (12:34)
[2023-07-18] MEDS ORDERED: methaDONE 40 MG, methaDONE 10 MG PO ONE (13:00)
[2023-07-18] MEDS: THIAMINE HCL 100 MG TABLET (FP) PO SCH (22:08)
[2023-07-18] MEDS: MELATONIN 5 MG TABLETS PO SCH (22:08)
[2023-07-19] MEDS: diazePAM 5 MG TABLET PO SCH ×4 (05:27→22:18)
[2023-07-19] MEDS: methaDONE 40 MG, methaDONE 10 MG PO SCH (05:28)
[2023-07-19] MEDS: BUDESONIDE/FORMETEROL FUMARATE 160/4.5 mcg INHALER IH SCH ×2 (10:17→22:20)
[2023-07-19] MEDS: PRENATAL VITAMINS W/ FOLIC ACID TABLET (FP) PO SCH (10:18)
[2023-07-19] MEDS: FAMOTIDINE 20 MG TABLET PO SCH (10:18)
[2023-07-19] MEDS: amLODIPine BESYLATE 10 MG TABLET (FP) PO SCH (10:18)
[2023-07-19] MEDS: ALBUTEROL SO4 HFA INHALER IH PRN (10:19)
[2023-07-19] MEDS: THIAMINE HCL 100 MG TABLET (FP) PO SCH (22:19)
[2023-07-19] MEDS: MELATONIN 5 MG TABLETS PO SCH (22:19)
[2023-07-20] MEDS: methaDONE 40 MG, methaDONE 10 MG PO SCH (05:55)
[2023-07-20] MEDS: diazePAM 5 MG TABLET PO SCH ×3 (05:56→21:54)
[2023-07-20] MEDS: amLODIPine BESYLATE 10 MG TABLET (FP) PO SCH (10:22)
[2023-07-20] MEDS: FAMOTIDINE 20 MG TABLET PO SCH (10:22)
[2023-07-20] MEDS: PRENATAL VITAMINS W/ FOLIC ACID TABLET (FP) PO SCH (10:22)
[2023-07-20] MEDS: BUDESONIDE/FORMETEROL FUMARATE 160/4.5 mcg INHALER IH SCH ×2 (10:23→21:54)
[2023-07-20] MEDS: THIAMINE HCL 100 MG TABLET (FP) PO SCH (21:54)
[2023-07-20] MEDS: SUVOREXANT 10 MG TABLET PO PRN (21:56)
[2023-07-21] MEDS: methaDONE 40 MG, methaDONE 10 MG PO SCH (05:02)
[2023-07-21] MEDS: diazePAM 5 MG TABLET PO SCH ×2 (05:41→17:22)
[2023-07-21] MEDS: FAMOTIDINE 20 MG TABLET PO SCH (10:32)
[2023-07-21] MEDS: hydrOXYzine PAMOATE 25 MG CAPSULE (FP) PO PRN (10:32)
[2023-07-21] MEDS: PRENATAL VITAMINS W/ FOLIC ACID TABLET (FP) PO SCH (10:32)
[2023-07-21] MEDS: BUDESONIDE/FORMETEROL FUMARATE 160/4.5 mcg INHALER IH SCH ×2 (11:04→22:17)
[2023-07-21] MEDS: amLODIPine BESYLATE 10 MG TABLET (FP) PO SCH (11:04)
[2023-07-21] MEDS: THIAMINE HCL 100 MG TABLET (FP) PO SCH (22:16)
[2023-07-21] MEDS: SUVOREXANT 10 MG TABLET PO PRN (22:18)
[2023-07-22] MEDS: methaDONE 40 MG, methaDONE 10 MG PO SCH (05:30)
[2023-07-22] MEDS ORDERED: diazePAM 5 MG TABLET PO ONE (06:00)
[2023-07-22 09:42] VITALS: RESP 16; TEMP 97.7
[2023-07-22] MEDS: BUDESONIDE/FORMETEROL FUMARATE 160/4.5 mcg INHALER IH SCH (10:23)
[2023-07-22] MEDS: PRENATAL VITAMINS W/ FOLIC ACID TABLET (FP) PO SCH (10:23)
[2023-07-22] MEDS: amLODIPine BESYLATE 10 MG TABLET (FP) PO SCH (10:23)
[2023-07-22] MEDS: FAMOTIDINE 20 MG TABLET PO SCH (10:23)
[2023-07-22 14:03] VITALS: BP 150/77; PULSE 72
== END 2023-07-22 13:35 | disposition home or self-care (01) | DRG 773 ==
LOC: YASAS 15:49 → Y3N 19:03
PROVIDERS: ADMIT Allergy & Immunology; ATTEND Surgery
PROC: HZ2ZZZZ Detoxification Services for Substance Abuse Treatment (ICD-10-PCS; principal; 2023-07-17)
DX: F10.230 Alcohol dependence with withdrawal, uncomplicated (principal); F11.20 Opioid dependence, uncomplicated; F17.210 Nicotine dependence, cigarettes, uncomplicated; F19.282 Other psychoactive substance dependence with psychoactive substance-induced sleep disorder; F19.280 Other psychoactive substance dependence with psychoactive substance-induced anxiety disorder; F19.24 Other psychoactive substance dependence with psychoactive substance-induced mood disorder; I10 Essential (primary) hypertension; J41.0 Simple chronic bronchitis; K21.9 Gastro-esophageal reflux disease without esophagitis; Z96.652 Presence of left artificial knee joint; Z87.01 Personal history of pneumonia (recurrent)
CPT/HCPCS: 36415; 80053; 80307; 85027; 86780; 87635; Q0162

== ENCOUNTER 2024-08-18 13:29 | Inpatient (IN) | payer OTHER ==
[2024-08-18 15:21] VITALS: BMI 26.5
[2024-08-18] MEDS ORDERED: BENZONATATE 200 MG CAPSULE PO PRN (16:25)
[2024-08-18] MEDS ORDERED: IBUPROFEN 400 MG TABLET (FP) PO PRN (16:25)
[2024-08-18] MEDS ORDERED: MAGNESIUM HYDROX 2400MG/30ML ORAL SUSPENSION 30 ML CUP PO PRN (16:25)
[2024-08-18] MEDS ORDERED: METHOCARBAMOL 500 MG TABLET PO PRN (16:25)
[2024-08-18] MEDS ORDERED: POLYETHYLENE GLYCOL (HEALTHYLAX) 3350 17 GM PACKET PO PRN (16:25)
[2024-08-18] MEDS ORDERED: guaiFENesin 600 MG TABLET.ER (FP) PO PRN (16:25)
[2024-08-18] MEDS ORDERED: DICYCLOMINE HCL 10 MG CAPSULE PO PRN (16:25)
[2024-08-18] MEDS ORDERED: BENZOCAINE/MENTHOL (CHLORASEPTIC ) LOZENGE MM PRN (16:25)
[2024-08-18] MEDS ORDERED: NALOXONE (NARCAN) HCL 4 MG/0.1 ML SPRAY NS PRN (16:25)
[2024-08-18] MEDS ORDERED: BISMUTH SUBSALICYLATE 524 MG/30 ML PO PRN (16:25)
[2024-08-18] MEDS ORDERED: MAG HYDROX/AL HYDROX/SIMETH 30 ML UNIT-DOSE CUP PO PRN (16:25)
[2024-08-18] MEDS ORDERED: hydrOXYzine PAMOATE 25 MG CAPSULE (FP) PO PRN (16:25)
[2024-08-18] MEDS ORDERED: ACETAMINOPHEN 325 MG TABLET (FP) PO PRN (16:25)
[2024-08-18] MEDS ORDERED: LOPERAMIDE HCL 2 MG CAPSULE PO PRN (16:25)
[2024-08-18] MEDS: ALBUTEROL SO4 2.5/IPRATROPIUM 0.5 INH SOL 3 ML VIAL.NEB. NEB ONE (18:10)
[2024-08-18] MEDS ORDERED: ALBUTEROL SO4 2.5/IPRATROPIUM 0.5 INH SOL 3 ML VIAL.NEB. NEB ONE (20:18)
[2024-08-18] MEDS: ALBUTEROL SO4 HFA INHALER IH PRN (20:20)
[2024-08-18] MEDS: diazePAM 5 MG TABLET PO PRN (20:48)
[2024-08-18] MEDS: THIAMINE 100 MG TABLET PO SCH (23:15)
[2024-08-18] MEDS: MELATONIN 5 MG TABLETS PO SCH (23:21)
[2024-08-18] MEDS: diazePAM 5 MG TABLET PO SCH (23:58)
[2024-08-18] MEDS: BUDESONIDE/FORMETEROL FUMARATE 160/4.5 mcg INHALER IH SCH (23:59)
[2024-08-19] MEDS: ONDANSETRON *ODT* 4 MG TABLET SL PRN (06:08)
[2024-08-19] MEDS: amLODIPine BESYLATE 10 MG TABLET (FP) PO SCH (09:57)
[2024-08-19] MEDS: FAMOTIDINE 20 MG TABLET PO SCH (09:57)
[2024-08-19] MEDS: PRENATAL VITAMINS W/ FOLIC ACID TABLET (FP) PO SCH (09:58)
[2024-08-19] MEDS: TIOTROPIUM BROMIDE 2.5 MCG (SPIRIVA) RESPIMAT INHALER IH SCH (09:58)
[2024-08-19 12:25] LABS: HEMATOCRIT 42.3 % (35.4-49); HEMOGLOBIN 14.1 GM/dL (11.7-16.9); MCH 36.2 pg (25.7-33.7); MCHC 33.3 g/dl (32.0-35.9); MEAN CELL VOLUME 108.8 fl (80-96); RBC 3.89 M/mm3 (4.00-5.60); RDW 15.1 % (11.9-15.9); WHITE BLOOD COUNT 2.7 K/mm3 (4.0-10.0)
[2024-08-19 12:40] LABS: SGPT/ALT 50 U/L (13-61)
[2024-08-19 12:41] LABS: ALBUMIN 3.2 g/dl (3.4-5.0); CALCIUM 9.4 mg/dL (8.5-10.1)
[2024-08-19 12:42] LABS: ANION GAP 7 mmol/L (4-13); BILIRUBIN,TOTAL 0.5 mg/dL (0.2-1); BLOOD UREA NITROGEN 8.2 mg/dL (7-18); CHLORIDE 98 mmol/L (98-107); CO2 33 mmol/L (21-32); GLUCOSE,RANDOM 166 mg/dL (74-106); POTASSIUM 3.5 mmol/L (3.5-5.1); SGOT/AST 74 U/L (15-37); SODIUM 138 mmol/L (136-145)
[2024-08-19 12:43] LABS: ALK PHOS 96 U/L (45-117)
[2024-08-19 12:44] LABS: CREATININE 0.7 mg/dL (0.55-1.3)
[2024-08-19] MEDS ORDERED: methaDONE HCL 10 MG TABLET PO SCH (12:45)
[2024-08-20] MEDS: diazePAM 5 MG TABLET PO SCH (05:41)
[2024-08-20 10:59] LABS: BASO % 0.9 % (0-2.0); EOS % 9.1 % (0-4.5); HEMOGLOBIN 15.2 GM/dL (11.7-16.9); LYMPH % 42.6 % (8-40); MCH 36.3 pg (25.7-33.7); MEAN CELL VOLUME 110.1 fl (80-96); MONO % 7.2 % (3.8-10.2); NEUT % 40.2 % (42.8-82.8); PLATELET COUNT 115 10^3/uL (134-434); RBC 4.18 M/mm3 (4.00-5.60); RDW 14.8 % (11.9-15.9); WHITE BLOOD COUNT 2.4 K/mm3 (4.0-10.0)
[2024-08-20 12:06] LABS: ANISOCYTOSIS 0; MACROCYTOSIS 2+
[2024-08-21] MEDS: diazePAM 5 MG TABLET PO SCH (05:34)
[2024-08-21] MEDS: NALOXONE (NYS OPIOID OVERDOSE PROGRAM) 4 MG/0.1 ML SPRAY NS SCH (11:43)
[2024-08-21] MEDS: IBUPROFEN 600 MG TABLET (FP) PO PRN (16:35)
[2024-08-22] MEDS: diazePAM 5 MG TABLET PO ONE (05:48)
[2024-08-22 06:47] VITALS: TEMP 98.2
[2024-08-22 09:08] VITALS: BP 115/71; PULSE 69; RESP 18
== END 2024-08-22 10:05 | disposition home or self-care (01) | DRG 773 ==
LOC: YASAS 13:29 → Y6N 17:11
PROVIDERS: ADMIT Allergy & Immunology; ATTEND Surgery
PROC: HZ2ZZZZ Detoxification Services for Substance Abuse Treatment (ICD-10-PCS; principal; 2024-08-18)
DX: F10.230 Alcohol dependence with withdrawal, uncomplicated (principal); F11.20 Opioid dependence, uncomplicated; F17.210 Nicotine dependence, cigarettes, uncomplicated; F41.9 Anxiety disorder, unspecified; I10 Essential (primary) hypertension; J41.0 Simple chronic bronchitis; K21.9 Gastro-esophageal reflux disease without esophagitis; E11.9 Type 2 diabetes mellitus without complications; Z96.652 Presence of left artificial knee joint; Z99.89 Dependence on other enabling machines and devices
CPT/HCPCS: 36415; 80053; 80307; 82962; 83036; 85025; 85027; 86780; 93005; 93010; 94640; Q0162

== ENCOUNTER 2024-10-14 16:09 | Inpatient (IN) | payer OTHER ==
[2024-10-14 16:32] VITALS: BMI 26.5
[2024-10-14] MEDS ORDERED: BISMUTH SUBSALICYLATE 524 MG/30 ML PO PRN (16:53)
[2024-10-14] MEDS ORDERED: NALOXONE (NARCAN) HCL 4 MG/0.1 ML SPRAY NS PRN (16:53)
[2024-10-14] MEDS ORDERED: ACETAMINOPHEN 325 MG TABLET (FP) PO PRN (16:53)
[2024-10-14] MEDS ORDERED: IBUPROFEN 400 MG TABLET (FP) PO PRN (16:53)
[2024-10-14] MEDS ORDERED: NICOTINE POLACRILEX 2 MG GUM BUC PRN (16:53)
[2024-10-14] MEDS ORDERED: MAG HYDROX/AL HYDROX/SIMETH 30 ML UNIT-DOSE CUP PO PRN (16:53)
[2024-10-14] MEDS ORDERED: POLYETHYLENE GLYCOL (HEALTHYLAX) 3350 17 GM PACKET PO PRN (16:53)
[2024-10-14] MEDS ORDERED: guaiFENesin 600 MG TABLET.ER (FP) PO PRN (16:53)
[2024-10-14] MEDS ORDERED: MAGNESIUM HYDROX 2400MG/30ML ORAL SUSPENSION 30 ML CUP PO PRN (16:53)
[2024-10-14] MEDS ORDERED: BENZONATATE 200 MG CAPSULE PO PRN (16:53)
[2024-10-14] MEDS ORDERED: ONDANSETRON *ODT* 4 MG TABLET SL PRN (16:53)
[2024-10-14] MEDS ORDERED: NICOTINE POLACRILEX 2 MG LOZENGE BC PRN (16:53)
[2024-10-14] MEDS ORDERED: BENZOCAINE/MENTHOL (CHLORASEPTIC ) LOZENGE MM PRN (16:53)
[2024-10-14] MEDS ORDERED: LOPERAMIDE HCL 2 MG CAPSULE PO PRN (16:53)
[2024-10-14] MEDS: diazePAM 5 MG TABLET PO SCH (18:00)
[2024-10-14] MEDS ORDERED: diazePAM 5 MG TABLET ONE (18:46)
[2024-10-14] MEDS ORDERED: ALBUTEROL SO4 HFA INHALER IH PRN (18:49)
[2024-10-14] MEDS: ATORVASTATIN CA 20 MG TABLET (FP) PO SCH (22:09)
[2024-10-14] MEDS: MELATONIN 5 MG TABLETS PO SCH (22:10)
[2024-10-14] MEDS: BUDESONIDE/FORMETEROL FUMARATE 160/4.5 mcg INHALER IH SCH (22:10)
[2024-10-14] MEDS: diazePAM 5 MG TABLET PO PRN (22:13)
[2024-10-14] MEDS: THIAMINE 100 MG TABLET PO SCH (22:14)
[2024-10-15] MEDS: TIOTROPIUM BROMIDE 2.5 MCG (SPIRIVA) RESPIMAT INHALER IH SCH (10:36)
[2024-10-15] MEDS: amLODIPine BESYLATE 10 MG TABLET (FP) PO SCH (10:36)
[2024-10-15] MEDS: PRENATAL VITAMINS W/ FOLIC ACID TABLET (FP) PO SCH (10:36)
[2024-10-15] MEDS: FAMOTIDINE 20 MG TABLET PO SCH (10:36)
[2024-10-15 11:12] LABS: HEMOGLOBIN 12.4 GM/dL (11.7-16.9); MCH 36.8 pg (25.7-33.7); MCHC 33.4 g/dl (32.0-35.9); MEAN CELL VOLUME 110.1 fl (80-96); MEAN PLT VOLUME 9.4 fl (7.5-11.1); PLATELET COUNT 177 10^3/uL (134-434); RBC 3.36 M/mm3 (4.00-5.60); RDW 15.4 % (11.9-15.9); WHITE BLOOD COUNT 2.8 K/mm3 (4.0-10.0)
[2024-10-15 11:18] LABS: POTASSIUM 3.8 mmol/L (3.5-5.1)
[2024-10-15] MEDS: methaDONE HCL 40 MG DISPERSABLE TABLET PO ONE (11:21)
[2024-10-15 11:28] LABS: ALBUMIN 3.2 g/dl (3.4-5.0); BLOOD UREA NITROGEN 13.5 mg/dL (7-18); CALCIUM 9.2 mg/dL (8.5-10.1)
[2024-10-15 11:32] LABS: BILIRUBIN,TOTAL 0.8 mg/dL (0.2-1); CREATININE 0.8 mg/dL (0.55-1.3); TOT PROT 6.1 g/dl (6.4-8.2)
[2024-10-15] MEDS ORDERED: methaDONE HCL 10 MG TABLET PO ONE (13:16)
[2024-10-15] MEDS: methaDONE 40 MG, methaDONE 30 MG PO ONE (14:48)
[2024-10-16] MEDS: diazePAM 5 MG TABLET PO SCH (05:41)
[2024-10-16] MEDS ORDERED: methaDONE HCL 10 MG TABLET PO SCH (06:00)
[2024-10-16] MEDS: FLUTICASONE PROP 0.05% 16 GM NASAL SPRAY NS SCH (13:28)
[2024-10-16] MEDS: LOSARTAN POTASSIUM 25 MG TABLET PO SCH (13:29)
[2024-10-17] MEDS: diazePAM 5 MG TABLET PO SCH (05:44)
[2024-10-17] MEDS ORDERED: P-EPHED 60MG/TRIPROLIDI 2.5MG TABLET PO PRN (10:55)
[2024-10-17] MEDS: guaiFENesin 600 MG TABLET.ER (FP) PO SCH (12:09)
[2024-10-18] MEDS: diazePAM 5 MG TABLET PO ONE (05:38)
[2024-10-19 06:55] VITALS: RESP 16; TEMP 97.8
[2024-10-19 08:51] VITALS: BP 128/83; PULSE 75
== END 2024-10-19 12:07 | disposition home or self-care (01) | DRG 897 ==
LOC: YASAS 16:09 → Y6N 18:28
PROVIDERS: ADMIT Allergy & Immunology; ATTEND Allergy & Immunology
PROC: HZ2ZZZZ Detoxification Services for Substance Abuse Treatment (ICD-10-PCS; principal; 2024-10-14)
DX: F10.230 Alcohol dependence with withdrawal, uncomplicated (principal); F11.20 Opioid dependence, uncomplicated; F17.210 Nicotine dependence, cigarettes, uncomplicated; F41.9 Anxiety disorder, unspecified; E78.5 Hyperlipidemia, unspecified; J44.9 Chronic obstructive pulmonary disease, unspecified; K21.9 Gastro-esophageal reflux disease without esophagitis; M17.12 Unilateral primary osteoarthritis, left knee
CPT/HCPCS: 36415; 80053; 80305; 80307; 84450; 85027; 86780

== ENCOUNTER 2024-12-17 10:51 | Inpatient (IN) | payer OTHER ==
[2024-12-17 11:30] VITALS: BMI 26.9
[2024-12-17] MEDS ORDERED: MAG HYDROX/AL HYDROX/SIMETH 30 ML UNIT-DOSE CUP PO PRN (11:56)
[2024-12-17] MEDS ORDERED: MAGNESIUM HYDROX 2400MG/30ML ORAL SUSPENSION 30 ML CUP PO PRN (11:56)
[2024-12-17] MEDS ORDERED: POLYETHYLENE GLYCOL (HEALTHYLAX) 3350 17 GM PACKET PO PRN (11:56)
[2024-12-17] MEDS ORDERED: BENZOCAINE/MENTHOL (CHLORASEPTIC ) LOZENGE MM PRN (11:56)
[2024-12-17] MEDS ORDERED: NICOTINE POLACRILEX 4 MG GUM BUC PRN (11:56)
[2024-12-17] MEDS ORDERED: BISMUTH SUBSALICYLATE 262 MG/15 ML BTL PO PRN (11:56)
[2024-12-17] MEDS ORDERED: LOPERAMIDE HCL 2 MG CAPSULE PO PRN (11:56)
[2024-12-17] MEDS ORDERED: BENZONATATE 200 MG CAPSULE PO PRN (11:56)
[2024-12-17] MEDS ORDERED: IBUPROFEN 600 MG TABLET (FP) PO PRN (11:56)
[2024-12-17] MEDS ORDERED: IBUPROFEN 400 MG TABLET (FP) PO PRN (11:56)
[2024-12-17] MEDS ORDERED: NALOXONE (NARCAN) HCL 4 MG/0.1 ML SPRAY NS PRN (11:56)
[2024-12-17] MEDS ORDERED: guaiFENesin 600 MG TABLET.ER (FP) PO PRN (11:56)
[2024-12-17] MEDS ORDERED: NICOTINE POLACRILEX 4 MG LOZENGE BC PRN (11:56)
[2024-12-17] MEDS ORDERED: DICYCLOMINE HCL 10 MG CAPSULE PO PRN (11:56)
[2024-12-17] MEDS ORDERED: METHOCARBAMOL 500 MG TABLET PO PRN (11:56)
[2024-12-17] MEDS ORDERED: ONDANSETRON *ODT* 4 MG TABLET SL PRN (11:56)
[2024-12-17] MEDS ORDERED: hydrOXYzine PAMOATE 25 MG CAPSULE (FP) PO ONE (13:44)
[2024-12-17] MEDS ORDERED: methaDONE HCL 40 MG DISPERSABLE TABLET PO ONE (13:45)
[2024-12-17] MEDS ORDERED: amLODIPine BESYLATE 5 MG TABLET (FP) ONE (13:45)
[2024-12-17] MEDS: amLODIPine BESYLATE 5 MG TABLET (FP) PO ONE (13:46)
[2024-12-17] MEDS: hydrOXYzine PAMOATE 25 MG CAPSULE (FP) PO PRN (13:46)
[2024-12-17] MEDS ORDERED: diazePAM 5 MG TABLET ONE (13:53)
[2024-12-17] MEDS: diazePAM 5 MG TABLET PO PRN (13:54)
[2024-12-17] MEDS: ALBUTEROL SO4 HFA INHALER IH PRN (21:41)
[2024-12-17] MEDS: THIAMINE 100 MG TABLET PO SCH (22:42)
[2024-12-17] MEDS: ATORVASTATIN CA 20 MG TABLET (FP) PO SCH (22:42)
[2024-12-17] MEDS: BUDESONIDE/FORMETEROL FUMARATE 160/4.5 mcg INHALER IH SCH (22:44)
[2024-12-17] MEDS: MELATONIN 5 MG TABLETS PO SCH (23:07)
[2024-12-17] MEDS: diazePAM 5 MG TABLET PO SCH (23:10)
[2024-12-18] MEDS ORDERED: methaDONE HCL 40 MG DISPERSABLE TABLET PO SCH (06:00)
[2024-12-18] MEDS ORDERED: amLODIPine BESYLATE 10 MG TABLET (FP) PO SCH (10:00)
[2024-12-18] MEDS: HYDROCHLOROTHIAZIDE 25 MG TABLET (FP) PO SCH (10:11)
[2024-12-18] MEDS: PRENATAL VITAMINS W/ FOLIC ACID TABLET (FP) PO SCH (10:11)
[2024-12-18] MEDS: FAMOTIDINE 20 MG TABLET PO SCH (10:11)
[2024-12-18] MEDS: amLODIPine BESYLATE 10 MG TABLET (FP) PO SCH (10:13)
[2024-12-18] MEDS: TIOTROPIUM BROMIDE 2.5 MCG (SPIRIVA) RESPIMAT INHALER IH SCH (11:00)
[2024-12-18] MEDS: HYDROCHLOROTHIAZIDE 25 MG TABLET (FP) PO ONE (12:05)
[2024-12-18] MEDS: propRANOLol HCL 10 MG TABLET PO SCH (12:05)
[2024-12-18] MEDS: SUVOREXANT 10 MG TABLET PO PRN (22:00)
[2024-12-19] MEDS: diazePAM 5 MG TABLET PO SCH (05:32)
[2024-12-19] MEDS: ACETAMINOPHEN 325 MG TABLET (FP) PO PRN (07:10)
[2024-12-20] MEDS: diazePAM 5 MG TABLET PO SCH (05:25)
[2024-12-20 10:23] LABS: HEMATOCRIT 39.3 % (40.1-51.0); HEMOGLOBIN 13.1 g/dL (13.7-17.5); MCHC 33.3 g/dl (32.3-36.5); MEAN CELL VOLUME 108.9 fl (79.0-92.2); MEAN PLT VOLUME 11.9 fl (9.4-12.4); PLATELET COUNT 119 x10^3/uL (163-337); RDW 12.7 % (12.2-16.4)
[2024-12-20 10:28] LABS: POTASSIUM 3.8 mmol/L (3.5-5.1)
[2024-12-20 10:34] LABS: ALBUMIN 3.5 g/dl (3.4-5.0); CALCIUM 9.9 mg/dL (8.5-10.1)
[2024-12-20 10:37] LABS: CREATININE 0.9 mg/dL (0.55-1.3)
[2024-12-20 10:38] LABS: BILIRUBIN,TOTAL 0.5 mg/dL (0.2-1); TOT PROT 6.6 g/dl (6.4-8.2)
[2024-12-20] MEDS: BISACODYL 5 MG TABLET.DR (FP) PO ONE (16:08)
[2024-12-21] MEDS: diazePAM 5 MG TABLET PO ONE (05:29)
[2024-12-21 20:37] VITALS: RESP 16
[2024-12-22 08:56] VITALS: BP 139/86; PULSE 87; TEMP 97.6
[2024-12-22] MEDS ORDERED: OLOPATADINE HCL 2% 2.5 ML BOTTLE OU SCH (10:00)
== END 2024-12-22 10:40 | disposition home or self-care (01) | DRG 897 ==
LOC: YASAS 10:51 → Y6N 14:04
PROVIDERS: ADMIT Allergy & Immunology; ATTEND Family Medicine Addiction Medicine
PROC: HZ2ZZZZ Detoxification Services for Substance Abuse Treatment (ICD-10-PCS; principal; 2024-12-17)
DX: F10.230 Alcohol dependence with withdrawal, uncomplicated (principal); F11.20 Opioid dependence, uncomplicated; F19.282 Other psychoactive substance dependence with psychoactive substance-induced sleep disorder; F19.280 Other psychoactive substance dependence with psychoactive substance-induced anxiety disorder; F17.210 Nicotine dependence, cigarettes, uncomplicated; F19.24 Other psychoactive substance dependence with psychoactive substance-induced mood disorder; F41.9 Anxiety disorder, unspecified; E78.5 Hyperlipidemia, unspecified; I10 Essential (primary) hypertension; J41.0 Simple chronic bronchitis; K21.9 Gastro-esophageal reflux disease without esophagitis
CPT/HCPCS: 36415; 80053; 80305; 80307; 85027; 86780